=== PATIENT | female | born 1950 | race Caucasian/White ===

== ENCOUNTER 2020-04-23 08:27 | Outpatient (REF) | payer MEDICARE, SELFPAY ==
[2020-04-23 10:25] LABS: Cholesterol 206 mg/dL; HDL Cholesterol 97 mg/dL; LDL Cholesterol Calculated 99 mg/dl; Triglycerides 53 mg/dL
== END 2020-04-23 08:28 | disposition home or self-care (01) ==
LOC: HO.LAB 08:27
PROVIDERS: PCP Internal Medicine; Visit Provider Internal Medicine
DX: E78.5 Hyperlipidemia, unspecified (principal)
CPT/HCPCS: 80061

== ENCOUNTER 2020-07-31 07:43 | Outpatient (REF) | payer MEDICARE, SELFPAY ==
[2020-07-31 09:07] LABS: Cholesterol 185 mg/dL; HDL Cholesterol 87 mg/dL; LDL Cholesterol Calculated 88 mg/dl; Triglycerides 53 mg/dL
== END 2020-07-31 07:44 | disposition home or self-care (01) ==
LOC: HO.LAB 07:43
PROVIDERS: PCP Internal Medicine; Visit Provider Internal Medicine
DX: E11.9 Type 2 diabetes mellitus without complications (principal)
CPT/HCPCS: 36415; 80061

== ENCOUNTER → 2020-11-03 11:10 | Outpatient (BNV) | payer MEDICARE, SELFPAY | PROVIDERS: PCP Internal Medicine; Visit Provider Internal Medicine Medical Oncology | DX: C50.911 Malignant neoplasm of unspecified site of right female breast (principal) | CPT/HCPCS: 99213; 99214 ==

== ENCOUNTER 2020-11-28 08:30 | Outpatient (REF) | payer MEDICARE, SELFPAY ==
[2020-11-28 09:11] LABS: MANUAL DIFF FLAG NO
[2020-11-28 09:18] LABS: Basophils Percent Auto 0.7 % (0-2); Eosinophils Absolute Auto 0.1 X10*3/uL (0.0-0.4); Eosinophils Percent Auto 1.9 % (0-4); Hematocrit 42.6 % (37-47); Hemoglobin 14.1 g/dl (12.0-16.0); Imm Gran Abs Auto 0.01 X10*3/uL (0.00-0.03); Imm Gran Pct Auto 0.2 % (0.0-0.4); Lymphocytes Absolute Auto 1.2 X10*3/uL (1.2-4.9); Mean Corpuscular HGB Conc 33.1 g/dl (31.0-35.0); Mean Corpuscular Hemoglobin 31.5 pg (27.0-33.0); Mean Corpuscular Volume 95.3 fL (80-98); Mean Platelet Volume 10.1 fL (9.4-12.3); Monocytes Absolute Auto 0.4 X10*3/uL (0.1-1.2); Monocytes Percent Auto 9.3 % (2-11); Neutrophils Absolute Auto 2.6 X10*3/uL (2.0-8.3); Neutrophils Percent Auto 59.9 % (45-73); Platelet Count 239 X10*3/uL (160-400); Red Blood Count 4.47 X10*6/uL (4.20-5.50); Red Cell Distribution Width 12.9 % (11.0-16.0); White Blood Count 4.3 X10*3/uL (4.8-10.8)
[2020-11-28 10:05] LABS: Alanine Aminotransferase 12 U/L (0-31); Albumin Level 4.5 g/dL (3.5-5.0); Alkaline Phosphatase 54 U/L (39-117); Anion Gap 15 (12-20); Aspartate Amino Transferase 20 U/L (5-31); Bilirubin Total 0.9 mg/dL (0.0-1.0); Blood Urea Nitrogen 18 mg/dL (9-16); Calcium 9.6 mg/dL (8.4-10.2); Carbon Dioxide 27 mmol/L (22-29); Chloride 104 mmol/L (96-108); Cholesterol 213 mg/dL; Estimated Glomerular Filt Rate > 60; Glucose Fasting 90 mg/dL (60-99); HDL Cholesterol 99 mg/dL; LDL Cholesterol Calculated 104 mg/dl; Potassium 3.9 mmol/L (3.3-5.1); Sodium 142 mmol/L (135-145); Thyroid Stimulating Hormone 1.94 uIU/mL (0.32-4.0); Triglycerides 53 mg/dL
== END 2020-11-28 08:31 | disposition home or self-care (01) ==
LOC: HO.LAB 08:30
PROVIDERS: Absent Provider Internal Medicine Medical Oncology; PCP Internal Medicine; Visit Provider Internal Medicine
DX: Z00.00 Encounter for general adult medical examination without abnormal findings (principal); E11.9 Type 2 diabetes mellitus without complications; E03.9 Hypothyroidism, unspecified
CPT/HCPCS: 36415; 80053; 80061; 84443; 85025

== ENCOUNTER 2020-12-22 07:43 | Outpatient (REF) | payer MEDICARE, SELFPAY ==
--- NOTE | ~2020-12-22 | US_ITS ---
EXAMINATION: US ABDOMEN COMPLETE CLINICAL INFORMATION: Unspecified abdominal pain. COMPARISON: Ultrasound renal with bladder 07/26/2018. CT abdomen 02/15/2007. TECHNIQUE: Real-time imaging of the abdominal viscera. FINDINGS: PANCREAS: Normal. ABDOMINAL AORTA: The proximal, mid, and distal segments are normal in caliber. INFERIOR VENA CAVA: Visualized portions are normal. LIVER: The liver is normal in size. The liver contour is normal. No focal hepatic lesion. There is no intrahepatic biliary duct dilatation seen. GALLBLADDER: There is a gallstone in the gallbladder. The gallbladder is normal in size. Gallbladder wall is normal. COMMON BILE DUCT: Normal in caliber measuring 0.4 cm in diameter. RIGHT KIDNEY: Normal. No hydronephrosis. No renal calculi or focal parenchymal lesions. The kidney measures 9.7 cm in maximum dimension. LEFT KIDNEY: Normal. No hydronephrosis. No renal calculi or focal parenchymal lesions. The kidney measures 10.1 cm in maximum dimension. SPLEEN: Normal. The spleen measures 7.4 cm in maximum dimension. FREE FLUID: None. US/US abdomen complete IMPRESSION: Small gallstone in the gallbladder. Otherwise unremarkable exam.
== END 2020-12-22 07:44 | disposition home or self-care (01) ==
LOC: HO.US 07:43
PROVIDERS: Visit Provider Internal Medicine
DX: R10.9 Unspecified abdominal pain (principal)
CPT/HCPCS: 76700

== ENCOUNTER 2021-02-02 15:41 | Outpatient (REF) | payer MEDICARE, SELFPAY ==
--- NOTE | ~2021-02-02 | MM_ITS ---
EXAMINATION: MM SCREENING DIGITAL BREAST TOMOSYNTHESIS, LEFT CLINICAL INFORMATION: Remote history right mastectomy for breast cancer. Due for yearly. COMPARISON: Mammography: 01/30/2020, 11/27/2018, 11/25/2017 TECHNIQUE: Digital breast tomosynthesis is performed in both the craniocaudal and mediolateral oblique views along with computer-aided detection (CAD). Synthesized 2D images are generated from the tomosynthesis. Additional left MLO view is provided. FINDINGS: There are scattered areas of fibroglandular density (ACR BI-RADS breast composition Category b). Breast tissue composition borders on heterogeneously dense. The parenchymal pattern is similar to prior exams. There is no developing density or interval mass or architectural abnormality. No abnormal calcifications. The axilla and skin contours are unremarkable. MM/MM tomosynthesis screening LT IMPRESSION: No mammographic evidence of malignancy. ASSESSMENT: BI-RADS 1: Negative RECOMMENDATION: Routine annual mammography screening. This patient's information was entered into a reminder system with a target due date for their next mammogram.
== END 2021-02-02 15:42 | disposition home or self-care (01) ==
LOC: HO.MAMMO 15:41
PROVIDERS: PCP Internal Medicine; Visit Provider Internal Medicine Medical Oncology
DX: Z12.31 Encounter for screening mammogram for malignant neoplasm of breast (principal)
CPT/HCPCS: 77063; 77067

== ENCOUNTER → 2021-02-04 09:44 | Outpatient (BNVA) | payer MEDICARE, SELFPAY | PROVIDERS: PCP Internal Medicine; Referring Provider Internal Medicine; Visit Provider Physician Assistant | DX: K57.30 Diverticulosis of large intestine without perforation or abscess without bleeding (principal); R10.9 Unspecified abdominal pain | CPT/HCPCS: 99202 ==

== ENCOUNTER 2021-03-23 09:53 | Day surgery (SDC) | payer MEDICARE, SELFPAY ==
[2021-03-18 13:30] VITALS: BMI 25.7
--- NOTE | 2021-03-20 12:05 | HO.ANESPROP2 ---
Documented by User: Chichi Aponte NP 03/20/21 12:07 HPI - Anesthesia Eval Consult details Narrative: 70yo F for Upper Endoscopy and Colonoscopy [facility] Active Problems Active Problems: All Active Problems (Updated 03/18/21 @ 13:29 by Maryam Castro RN) Breast cancer (Acute) Pulmonary nodule (Acute) Physical exam (Acute) Combined abdominal and pelvic pain (Acute) Diverticulosis large intestine w/o perforation or abscess w/o bleeding (Acute) Acid reflux (Acute) Abdominal pain (Acute) Hyperlipidemia (Acute) Hypertension (Acute) Past Medical History Medical History (Updated 03/18/21 @ 13:29 by Maryam Castro RN) Breast cancer Diverticulosis GERD (gastroesophageal reflux disease) Hyperlipidemia Hypertension Family History Family History Father No problems noted. Mother Uterine cancer CVD (cardiovascular disease) Diabetes Maternal Aunt Ovarian cancer Sister No problems noted. Brother No problems noted. Brother No problems noted. Brother No problems noted. Son No problems noted. Surgical History Surgical History History of D&C History of mastectomy History of prolapse of bladder History of total abdominal hysterectomy and bilateral salpingo-oophorectomy Hx of colonoscopy Social History Social History Housing: House Alcohol intake: current Alcohol intake frequency: a few times a week Patient Tobacco Use Status: Never used Tobacco Second Hand Smoke Exposure: No Advance Directives: No Advance Directives Information Provided: No service: No Current occupational status: retired Meds Allergies Allergy/AdvReac Type Severity Reaction Status Date / Time cefazolin [From Kefzol] Allergy Severe Rash Verified 03/18/21 13:26 clindamycin [CLINDAMYCIN] Allergy Severe RASH Verified 02/04/21 09:57 adhesive tape Allergy Intermediate REDNESS.BLI Verified 02/04/21 09:57 STERS cephalexin [Keflex] Allergy Intermediate Rash Verified 03/18/21 13:30 meperidine [Demerol] Allergy Unknown Unknown Verified 02/04/21 09:57 nitrofurantoin [Macrobid] Allergy Unknown Unknown Verified 02/04/21 09:57 Home Medications Medication Instructions Recorded Confirmed Last Taken Type raloxifene 60 mg tablet 60 mg PO DAILY 04/29/20 03/18/21 Unknown History Exam Exam Date and Time: March 20, 2021 1205 Height,Weight and Vital Signs: Height 5 ft 5 in Weight 70.307 kg Pertinent Lab Results Pertinent Lab Results: Laboratory Tests 11/28/20 11/28/20 08:35 08:35 WBC 4.3 L Hgb 14.1 Hct 42.6 Plt Count 239 Sodium 142 Potassium 3.9 Chloride 104 Carbon Dioxide 27 BUN 18 H Creatinine 0.84 Assessment and Plan Assessment Anesthesia Assessment: Chart Reviewed Documented by User: Jessica Enriquez MD 03/23/21 11:01 [facility] Past Medical History Medical History (Updated 03/18/21 @ 13:29 by Maryam Castro RN) Breast cancer Diverticulosis GERD (gastroesophageal reflux disease) Hyperlipidemia Hypertension Family History Family History Father No problems noted. Mother Uterine cancer CVD (cardiovascular disease) Diabetes Maternal Aunt Ovarian cancer Sister No problems noted. Brother No problems noted. Brother No problems noted. Brother No problems noted. Son No problems noted. Family history of problems with anesthesia: No Surgical History Surgical History History of D&C History of mastectomy History of prolapse of bladder History of total abdominal hysterectomy and bilateral salpingo-oophorectomy Hx of colonoscopy History of Problems with Anesthesia: No Social History Social History Housing: House Alcohol intake: current Alcohol intake frequency: a few times a week Patient Tobacco Use Status: Never used Tobacco Second Hand Smoke Exposure: No Advance Directives: No Advance Directives Information Provided: No service: No Current occupational status: retired Meds Allergies Allergy/AdvReac Type Severity Reaction Status Date / Time cefazolin [From Kefzol] Allergy Severe Rash Verified 03/18/21 13:26 clindamycin [CLINDAMYCIN] Allergy Severe RASH Verified 02/04/21 09:57 adhesive tape Allergy Intermediate REDNESS.BLI Verified 02/04/21 09:57 STERS cephalexin [Keflex] Allergy Intermediate Rash Verified 03/18/21 13:30 meperidine [Demerol] Allergy Unknown Unknown Verified 02/04/21 09:57 nitrofurantoin [Macrobid] Allergy Unknown Unknown Verified 02/04/21 09:57 Home Medications Medication Instructions Recorded Confirmed Last Taken Type raloxifene 60 mg tablet 60 mg PO DAILY 04/29/20 03/18/21 Unknown History Exam Height,Weight and Vital Signs: Height 5 ft 5 in Weight 70.307 kg Vital Signs Temp Pulse Resp BP Pulse Ox 03/23/21 10:27 97.6 F 97 16 155/76 H 99 Airway Mallampati Class: II TM Dist: >3cm Neck ROM: Full Loose/Missing/Broken Teeth: No Heart: RRR Lungs: CTAB Assessment and Plan Assessment Anesthesia Assessment: Anesthesia Plan Discussed Final Anesthetic Review Family History of Problems with Anesthesia: No History of Problems with Anesthesia: No NPO: Yes ASA Class: II Final Preanesthetic Review: No Changes in Pt Med Stat, Meds/Allgs Chart Reviewed, Consent Obtained/Reviewed and Anes Risks/Benef Reviewed Patient Risk: Low Procedure Risk: Low Assessment/Block/Sedation in SS: Assess/Block/Sedation-SS Anesthetic Plan Anesthetic Plan: MAC: Disposition: Standard PACU
--- NOTE | 2021-03-23 10:13 | MHC.SHP ---
Pre-Procedural Eval Section A Date of Service: 03/23/21 The patient is an INPATIENT: No The History & Physical has been completed within 30 days and I have reviewed it.: No Section B Chief Complaint: Acid Reflux, Abdominal Pain Details of Present Illness: Recent episode of diverticulitis, GERD, dysphagia Relevant Family History (Specify if Yes): Yes Relevant Social History: None Present Medications: see Short Stay Collaborative assessment Medical History: Significant History (Hyperlipidemia Hypertension) History of Previous Operations: Relevant previous surgery/procedure and date(s) (History of D&C History of mastectomy History of prolapse of bladder History of total abdominal hysterectomy and bilateral salpingo-oophorectomy Hx of colonoscopy) Allergies: Allergies Allergy/AdvReac Type Severity Reaction Status Date / Time cefazolin [From Kefzol] Allergy Severe Rash Verified 03/18/21 13:26 clindamycin [CLINDAMYCIN] Allergy Severe RASH Verified 02/04/21 09:57 adhesive tape Allergy Intermediate REDNESS.BLI Verified 02/04/21 09:57 STERS cephalexin [Keflex] Allergy Intermediate Rash Verified 03/18/21 13:30 meperidine [Demerol] Allergy Unknown Unknown Verified 02/04/21 09:57 nitrofurantoin [Macrobid] Allergy Unknown Unknown Verified 02/04/21 09:57 Review of Systems Sugical H&P ROS: Negative: Constitution, Cardiovascular and Respiratory and Yes, Specify: Gastrointestinal (GERD, dysphagia) Exam Surgical H&P Exam: Normal: Heart, Normal: Lungs, Normal: Extremities and Normal: Abdomen Plan Diagnosis/Plan: Unchanged I have reviewed the history and physical and performed a pertinent physical examination on my patient. No changes have occurred unless specified.
[2021-03-23 10:27] VITALS: BP 155/76; PULSE 97; RESP 16; TEMP 36.4; O2SAT 99
[2021-03-23] MEDS: Lactated Ringers 1,000 ML 100 ML IVCONT (10:29)
--- NOTE | 2021-03-23 10:30 | PM.OP ---
Brief Operative Note Date of Service: 03/23/21 Pre-op diagnosis: Recent episode of abd pain - ? diverticulitis, GERD, dysphagia Post-op diagnosis: other (GERD, dysphagia, colon polyp, diverticulosis, hemorrhoids.) Procedure: FLEXIBLE TRANSORAL UPPER GASTROINTESTINAL ENDOSCOPY WITH BIOPSIES AND ESOPHAGEAL BALLOON DILATION AND COLONOSCOPY TILL CECUM WITH SNARE POLYPECTOMY UPPER ENDOSCOPY Consent: Indications for the procedure and potential complications of bleeding, perforation, reaction to medications and missed diagnosis were discussed with the patient and informed consent was obtained. Instrument: Olympus GIF H 190 mid size upper endoscope Monitoring: Vital signs and clinical assessment, continuous EKG monitoring, Pulse oximetry, Carbon Dioxide monitoring and blood pressure monitoring were done throughout the procedure. Procedure: The patient was placed in the left lateral decubitis position and pre-procedure medications were administered and a bite block was placed. The endoscope was inserted into the mouth and advanced under direct vision to the third part of duodenum. A careful inspection was made as the upper endoscope was withdrawn including a retroflexed examination of the proximal stomach; Findings and interventions are described below. Findings: Esophagus: Tortuous esophagus with iincreased tertiary contractions without stricture or ring. GE junction at 38 cms. Irregular Z line - biopsied to check for Castillo's. Balloon dilation was performed with a 20 mm CRE balloon for 60 seconds Stomach: Mild gastric erythema. Biopsies were obtained. Grade 2 flap valve on retroflexed examination of the cardia. Duodenum: Normal bulb and descending duodenum Intervention: Biopsies and esophageal balloon dilation as noted above COLONOSCOPY PROCEDURE NOTE Consent: Indications for the procedure and potential complications of bleeding, perforation, reaction to medications and missed diagnosis were discussed with the patient and informed consent was obtained. Instrument: Olympus PCF H 190 L variable stiffness pediatric colonoscope Monitoring: Vital signs and clinical assessment, intermittent blood pressure monitoring, continuous EKG monitoring, Pulse oximetry and Carbon Dioxide monitoring were done throughout the procedure. Colon withdrawl time was 13 minutes. Procedure: The patient was placed in the left lateral decubitis position and pre-procedure medications were administered. After a digital rectal examination of the ano-rectum, the video colonoscope was inserted into the rectum and advanced through the colon to the cecum. The colonoscope was slowly withdrawn in a retrograde panoramic fashion and the colon mucosa was carefully examined including a retroflexed view of the rectum. Findings and interventions are described below. Procedure Difficulty: : Without difficulty Findings: Terminal Ileum: Not evaluated Cecum: Normal Ascending Colon: A 12-14 mm sessile polyp removed with a hot snare and scattered diverticulosis Transverse Colon: Scattered moderate diverticulosis Descending Colon: Scattered moderate diverticulosis Sigmoid Colon: Moderate diverticulosis Rectum: Normal Ano-rectum: Small internal hemorrhoids Colon preparation: Good Impression and Post Procedure Diagnosis: Endoscopy Findings: ESOPHAGUS: Tortuous esophagus with iincreased tertiary contractions without stricture or ring. GE junction at 38 cms. Irregular Z line - biopsied to check for Castillo's. Balloon dilation was performed with a 20 mm CRE balloon for 60 seconds STOMACH: Gastritis Colonoscopy Findings: One medium sized polyp removed Moderate diverticulosis seen in the entire colon Small hemorrhoids on retroflexed exam. Plan: Await pathology results Patient has an appointment on 04/08/21 in the GI Clinic with MARIANNA Tuttle . Repeat Colonoscopy interval based on path results - in 3 years if polyp is adenomatous and 10 years if polyps are hyperplastic. Above findings were reviewed with the patient and colon polyps and diverticulosis handouts were given in the discharge area Surgeon: Eileen Bowen MD Anesthesia: MAC (Dr diego) Was an Open Hearth Laborer used for this Procedure?: Yes Open Hearth Laborer: Vonnie Judd Estimated blood loss (mL): 0 Pathology: other (A. gastric antrum, R/O H. pylori B. distal esophagus, R/O Castillo's C. ascending colon polyp) Condition: stable Disposition: PACU
--- NOTE | 2021-03-23 10:32 | W.PM.OPN ---
Operative Note Operative Note Date of Service: 03/23/21 Narrative: Pre-op diagnosis:?Recent episode of abd pain - ? diverticulitis, GERD, dysphagia Post-op diagnosis:?other (GERD, dysphagia, colon polyp, diverticulosis, hemorrhoids.) Procedure:? FLEXIBLE TRANSORAL UPPER GASTROINTESTINAL ENDOSCOPY WITH BIOPSIES AND ESOPHAGEAL BALLOON DILATION AND COLONOSCOPY TILL CECUM WITH SNARE POLYPECTOMY UPPER ENDOSCOPY Consent:?Indications for the procedure and potential complications of bleeding, perforation, reaction to medications and missed diagnosis were discussed with the patient and informed consent was obtained. Instrument:?Olympus GIF H 190 mid size upper endoscope Monitoring: Vital signs and clinical assessment, continuous EKG monitoring, Pulse oximetry, Carbon Dioxide monitoring and blood pressure monitoring were done throughout the procedure. Procedure:?The patient was placed in the left lateral decubitis position and pre-procedure medications were administered and a bite block was placed. The endoscope was inserted into the mouth and advanced under direct vision to the third part of duodenum. A careful inspection was made as the upper endoscope was withdrawn including a retroflexed examination of the proximal stomach; Findings and interventions are described below. Findings: Esophagus:?Tortuous esophagus with iincreased tertiary contractions without stricture or ring.? GE junction at 38 cms.? Irregular Z line - biopsied to check for Castillo's. Balloon dilation was performed with a 20 mm CRE balloon for 60 seconds Stomach:?Mild gastric erythema. Biopsies were obtained. Grade 2 flap valve on retroflexed examination of the cardia. Duodenum:?Normal bulb and descending duodenum Intervention:?Biopsies and esophageal balloon dilation as noted above COLONOSCOPY PROCEDURE NOTE Consent:?Indications for the procedure and potential complications of bleeding, perforation, reaction to medications and missed diagnosis were discussed with the patient and informed consent was obtained. Instrument:?Olympus PCF H 190 L variable stiffness pediatric colonoscope Monitoring:?Vital signs and clinical assessment, intermittent blood pressure monitoring, continuous EKG monitoring, Pulse oximetry and Carbon Dioxide monitoring were done throughout the procedure. Colon withdrawl time was 13 minutes. Procedure:?The patient was placed in the left lateral decubitis position and pre-procedure medications were administered. After a digital rectal examination of the ano-rectum, the video colonoscope was inserted into the rectum and advanced through the colon to the cecum. The colonoscope was slowly withdrawn in a retrograde panoramic fashion and the colon mucosa was carefully examined including a retroflexed view of the rectum. Findings and interventions are described below. Procedure Difficulty:?: Without difficulty Findings: Terminal Ileum: Not evaluated Cecum:? Normal Ascending Colon:??A 12-14 mm sessile polyp removed with a hot snare and scattered diverticulosis Transverse Colon:??Scattered moderate diverticulosis Descending Colon:? Scattered moderate diverticulosis Sigmoid Colon:??Moderate diverticulosis Rectum:??Normal Ano-rectum:??Small internal hemorrhoids Colon preparation:? Good? Impression and Post Procedure Diagnosis: Endoscopy Findings: ESOPHAGUS: Tortuous esophagus with iincreased tertiary contractions without stricture or ring.? GE junction at 38 cms.? Irregular Z line - biopsied to check for Castillo's. Balloon dilation was performed with a 20 mm CRE balloon for 60 seconds STOMACH: Gastritis Colonoscopy Findings: One medium sized polyp removed Moderate diverticulosis seen in the entire colon Small hemorrhoids on retroflexed exam. Plan: Await pathology results Patient has an appointment on 04/08/21 in the GI Clinic with MARIANNA Tuttle . Repeat Colonoscopy interval based on path results - in 3 years if polyp is adenomatous and 10 years if polyps are hyperplastic. Above findings were reviewed with the patient and colon polyps and diverticulosis handouts were given in the discharge area Surgeon:?Eileen Bowen MD Anesthesia:?MAC (Dr diego) Was an Plastic Surgeon used for this Procedure?:?Yes Plastic Surgeon:?Vonnie Judd Estimated blood loss (mL):?0 Pathology:?other (A. gastric antrum, R/O H. pylori? B. distal esophagus, R/O Castillo's? C. ascending colon polyp) Condition:?stable Disposition:?PACU
[2021-03-23 11:28] VITALS: BP 104/60; PULSE 68; RESP 16; TEMP 36.9; O2SAT 97
[2021-03-23 11:43] VITALS: BP 120/70; PULSE 57; RESP 16; TEMP 36.9; O2SAT 98
== END 2021-03-23 12:26 | disposition home or self-care (01) ==
PROVIDERS: PCP Internal Medicine; Visit Provider Internal Medicine Gastroenterology
PROC: (CPT 45385; principal; 2021-03-23 11:00)
DX: Z12.11 Encounter for screening for malignant neoplasm of colon (principal); D12.2 Benign neoplasm of ascending colon; K57.30 Diverticulosis of large intestine without perforation or abscess without bleeding; K64.8 Other hemorrhoids; K21.9 Gastro-esophageal reflux disease without esophagitis; R13.10 Dysphagia, unspecified; K29.70 Gastritis, unspecified, without bleeding; I10 Essential (primary) hypertension
CPT/HCPCS: 45385; 43249; 43239; 88305; 88342; C1726

== ENCOUNTER 2021-04-01 07:56 | Outpatient (REF) | payer MEDICARE, SELFPAY ==
[2021-04-01 09:07] LABS: Cholesterol 177 mg/dL; HDL Cholesterol 69 mg/dL; LDL Cholesterol Calculated 97 mg/dl; Triglycerides 58 mg/dL
== END 2021-04-01 07:57 | disposition home or self-care (01) ==
LOC: HO.LAB 07:56
PROVIDERS: PCP Internal Medicine; Visit Provider Internal Medicine
DX: E11.9 Type 2 diabetes mellitus without complications (principal)
CPT/HCPCS: 36415; 80061

== ENCOUNTER → 2021-04-08 13:28 | Outpatient (BNVA) | payer MEDICARE, SELFPAY | PROVIDERS: PCP Internal Medicine; Visit Provider Physician Assistant | DX: K21.9 Gastro-esophageal reflux disease without esophagitis (principal); K64.9 Unspecified hemorrhoids; K57.90 Diverticulosis of intestine, part unspecified, without perforation or abscess without bleeding; K59.09 Other constipation; D36.9 Benign neoplasm, unspecified site | CPT/HCPCS: 99212 ==

== ENCOUNTER 2021-08-07 08:30 | Outpatient (REF) | payer MEDICARE, SELFPAY ==
[2021-08-07 09:42] LABS: Cholesterol 217 mg/dL; HDL Cholesterol 88 mg/dL; LDL Cholesterol Calculated 115 mg/dl; Triglycerides 74 mg/dL
== END 2021-08-07 08:31 | disposition home or self-care (01) ==
LOC: HO.LAB 08:30
PROVIDERS: PCP Internal Medicine; Visit Provider Internal Medicine
DX: E11.9 Type 2 diabetes mellitus without complications (principal)
CPT/HCPCS: 36415; 80061

== ENCOUNTER 2021-12-29 08:20 | Outpatient (REF) | payer MEDICARE, SELFPAY ==
[2021-12-29 08:29] LABS: MANUAL DIFF FLAG NO
[2021-12-29 09:17] LABS: Basophils Percent Auto 0.6 % (0-2); Eosinophils Absolute Auto 0.1 X10*3/uL (0.0-0.4); Eosinophils Percent Auto 1.8 % (0-4); Hematocrit 40.8 % (37.0-47.0); Hemoglobin 13.2 g/dl (12.0-16.0); Imm Gran Abs Auto 0.01 X10*3/uL (0.00-0.03); Imm Gran Pct Auto 0.2 % (0.0-0.4); Lymphocytes Absolute Auto 1.1 X10*3/uL (1.2-4.9); Lymphocytes Percent Auto 22.3 % (20-40); Mean Corpuscular HGB Conc 32.4 g/dl (31.0-35.0); Mean Corpuscular Hemoglobin 30.8 pg (27.0-33.0); Mean Corpuscular Volume 95.1 fL (80.0-98.0); Mean Platelet Volume 10.2 fL (9.4-12.3); Monocytes Absolute Auto 0.4 X10*3/uL (0.1-1.2); Monocytes Percent Auto 8.6 % (2-11); Neutrophils Absolute Auto 3.3 x10*3/uL (2.0-8.3); Neutrophils Percent Auto 66.5 % (45-73); Platelet Count 255 X10*3/uL (160-400); Red Blood Count 4.29 X10*6/uL (4.20-5.50); Red Cell Distribution Width 13.3 % (11.0-16.0)
[2021-12-29 09:41] LABS: Alanine Aminotransferase 12 U/L (0-31); Albumin Level 4.3 g/dL (3.5-5.0); Alkaline Phosphatase 60 U/L (39-117); Anion Gap 12 (12-20); Aspartate Amino Transferase 21 U/L (5-31); Bilirubin Total 0.8 mg/dL (0.0-1.0); Blood Urea Nitrogen 15 mg/dL (9-16); Calcium 9.2 mg/dL (8.4-10.2); Carbon Dioxide 27 mmol/L (22-29); Chloride 105 mmol/L (96-108); Cholesterol 201 mg/dL; Estimated Glomerular Filt Rate > 60; Glucose Fasting 91 mg/dL (60-99); HDL Cholesterol 77 mg/dL; LDL Cholesterol Calculated 108 mg/dl; Potassium 3.9 mmol/L (3.3-5.1); Sodium 140 mmol/L (135-145); Total Protein 6.9 g/dL (6.5-8.0); Triglycerides 82 mg/dL
== END 2021-12-29 08:21 | disposition home or self-care (01) ==
LOC: HO.LAB 08:20
PROVIDERS: PCP Internal Medicine; Visit Provider Internal Medicine
DX: Z13.0 Encounter for screening for diseases of the blood and blood-forming organs and certain disorders involving the immune mechanism (principal); I10 Essential (primary) hypertension; E78.5 Hyperlipidemia, unspecified
CPT/HCPCS: 36415; 80053; 80061; 85025

== ENCOUNTER 2022-02-08 07:15 | Outpatient (REF) | payer MEDICARE, SELFPAY ==
--- NOTE | ~2022-02-08 | MM_ITS ---
EXAMINATION: MM SCREENING DIGITAL BREAST TOMOSYNTHESIS, LEFT CLINICAL INFORMATION: Remote right mastectomy for breast cancer, 1994. Due for yearly. COMPARISON: Mammography: 02/02/2021, 01/30/2020, 11/27/2018 TECHNIQUE: Digital breast tomosynthesis is performed in both the craniocaudal and mediolateral oblique views along with computer-aided detection (CAD). Synthesized 2D images are generated from the tomosynthesis. FINDINGS: There are scattered areas of fibroglandular density (ACR BI-RADS breast composition Category b). Parenchymal pattern is similar to prior studies and there is no developing density or interval mass or arcuate additional abnormality. Breast tissue composition borders on heterogeneously dense. There are no abnormal calcifications. The axilla are unremarkable. There is a dermal lesion overlying the posterior inferior medial breast. MM/MM tomosynthesis screening LT IMPRESSION: No mammographic evidence of malignancy. ASSESSMENT: BI-RADS 2: Benign RECOMMENDATION: Routine annual mammography screening. This patient's information was entered into a reminder system with a target due date for their next mammogram.
== END 2022-02-08 07:16 | disposition home or self-care (01) ==
LOC: HO.MAMMO 07:15
PROVIDERS: PCP Internal Medicine; Visit Provider Internal Medicine
DX: Z12.31 Encounter for screening mammogram for malignant neoplasm of breast (principal)
CPT/HCPCS: 77063; 77067

== ENCOUNTER → 2022-03-11 08:16 | Outpatient (BNVA) | payer MEDICARE, SELFPAY | PROVIDERS: PCP Internal Medicine; Visit Provider Physician Assistant | DX: K21.9 Gastro-esophageal reflux disease without esophagitis (principal); K57.90 Diverticulosis of intestine, part unspecified, without perforation or abscess without bleeding; K59.09 Other constipation; Z79.899 Other long term (current) drug therapy; Z86.010 Personal history of colon polyps | CPT/HCPCS: 99212 ==

== ENCOUNTER 2022-05-06 13:15 | Outpatient (REF) | payer MEDICARE, SELFPAY ==
--- NOTE | ~2022-05-06 | MM_ITS ---
EXAMINATION: BONE DENSITOMETRY CLINICAL INDICATION: Osteopenia. COMPARISON: Previous BD dated 02/19/2020 and baseline BD dated 12/04/2007. TECHNIQUE: Using a [employer] DXA System (software version: 13.1) manufactured by [employer], dual-energy x-ray absorptiometry was performed of the lumbar spine and left hip. The images are of good technical quality. Summary results are attached. FINDINGS: AP SPINE L1-L4: Current: BMD 1.000 g/cm2, Z-score 0.0, T-score -1.5, osteopenia, 1.0% decrease from previous, 9.3% increase from baseline (<5% change is not significant). Prior: BMD 1.010 g/cm2. Baseline: BMD 0.915 g/cm2. LEFT FEMUR, NECK: Current: BMD 0.749 g/cm2, Z-score -0.5, T-score -2.1, osteopenia. Prior: BMD 0.748 g/cm2. Baseline: BMD 0.745 g/cm2. LEFT FEMUR, TOTAL: Current: BMD 0.813 g/cm2, Z-score -0.2, T-score -1.5, osteopenia, 0.1% increase from previous, 0.5% decrease from baseline (<5% change is not significant). Prior: BMD 0.812 g/cm2. Baseline: BMD 0.817 g/cm2. IDENTIFIED RISK FACTORS: Early menopause, secondary osteoporosis, family history (parental hip fracture), hysterectomy, bilateral oophorectomy. HISTORY OF FRACTURE: None listed. MEDICATIONS: Vitamin D, ERT/SERMS. MM/XR DEXA axial skeleton IMPRESSION: 1. DIAGNOSIS: Osteopenia based on the lowest T-score value of -2.1 in the femoral neck applying World Health Organization criteria. 2. 10-YEAR FRACTURE RISK PREDICTION, FRAX: Not performed in this patient on estrogen or bone building treatments. 3. Treatment Recommendations: NOF guidelines recommend consideration for treatment in postmenopausal women and men age 50 and older presenting with the following: -A hip or vertebral (clinical or morphometric) fracture. -T-score less than or equal to -2.5 at the femoral neck or spine after appropriate evaluation to exclude secondary causes. -Low bone mass at the hip or spine and a 10-year fracture probability by FRAX of greater than or equal to 3% for hip fracture or greater than or equal to 20% for major osteoporotic fracture based on the [place] adapted WHO algorithm. 4. Other Recommendations: All treatment decisions require clinical judgment and consideration of individual patient factors, including patient preferences, comorbidities, previous drug use, risk factors not captured in the FRAX model (e.g. frailty, falls, vitamin D deficiency, increased bone turnover, interval significant decline in bone density) and possible under or overestimation of fracture risk by FRAX. Additional medical evaluation for secondary cause of low bone mineral density may be appropriate. FUTURE SCAN RECOMMENDATION: People with diagnosed cases of osteoporosis or at high risk for fracture should have regular bone mineral density tests. For patients eligible for Medicare, routine testing is allowed once every 2 years. The testing frequency can be increased to one year for patients who have rapidly progressing disease, those who are receiving or discontinuing medical therapy to restore bone mass, or have additional risk factors.
== END 2022-05-06 13:16 | disposition home or self-care (01) ==
LOC: HO.MAMMO 13:15
PROVIDERS: Visit Provider Internal Medicine Medical Oncology
DX: Z13.820 Encounter for screening for osteoporosis (principal); M85.80 Other specified disorders of bone density and structure, unspecified site; Z78.0 Asymptomatic menopausal state
CPT/HCPCS: 77080

== ENCOUNTER 2022-05-10 08:55 | Outpatient (REF) | payer MEDICARE, SELFPAY ==
[2022-05-10 09:15] LABS: MANUAL DIFF FLAG NO
[2022-05-10 09:35] LABS: Basophils Percent Auto 0.6 % (0-2); Eosinophils Absolute Auto 0.1 X10*3/uL (0.0-0.4); Hematocrit 43.9 % (37.0-47.0); Hemoglobin 14.6 g/dl (12.0-16.0); Imm Gran Abs Auto 0.01 X10*3/uL (0.00-0.03); Imm Gran Pct Auto 0.2 % (0.0-0.4); Lymphocytes Absolute Auto 1.2 X10*3/uL (1.2-4.9); Mean Corpuscular HGB Conc 33.3 g/dl (31.0-35.0); Mean Corpuscular Hemoglobin 31.2 pg (27.0-33.0); Mean Corpuscular Volume 93.8 fL (80.0-98.0); Mean Platelet Volume 9.8 fL (9.4-12.3); Monocytes Absolute Auto 0.4 X10*3/uL (0.1-1.2); Monocytes Percent Auto 7.3 % (2-11); Neutrophils Absolute Auto 3.5 x10*3/uL (2.0-8.3); Neutrophils Percent Auto 67.9 % (45-73); Platelet Count 257 X10*3/uL (160-400); Red Blood Count 4.68 X10*6/uL (4.20-5.50); Red Cell Distribution Width 12.4 % (11.0-16.0); White Blood Count 5.1 X10*3/uL (4.8-10.8)
[2022-05-10 11:00] LABS: Alanine Aminotransferase 12 U/L (0-31); Albumin Level 4.5 g/dL (3.5-5.0); Alkaline Phosphatase 54 U/L (39-117); Anion Gap 16 (12-20); Aspartate Amino Transferase 18 U/L (5-31); Bilirubin Total 0.7 mg/dL (0.0-1.0); Blood Urea Nitrogen 17 mg/dL (9-16); Calcium 9.8 mg/dL (8.4-10.2); Carbon Dioxide 27 mmol/L (22-29); Chloride 104 mmol/L (96-108); Cholesterol 207 mg/dL; Estimated Glomerular Filt Rate > 60; Glucose Fasting 90 mg/dL (60-99); HDL Cholesterol 82 mg/dL; LDL Cholesterol Calculated 113 mg/dl; Potassium 4.2 mmol/L (3.3-5.1); Sodium 143 mmol/L (135-145); Thyroid Stimulating Hormone 1.73 uIU/mL (0.32-4.0); Total Protein 7.2 g/dL (6.5-8.0); Triglycerides 62 mg/dL
== END 2022-05-10 08:56 | disposition home or self-care (01) ==
LOC: HO.LAB 08:55
PROVIDERS: PCP Internal Medicine; Visit Provider Internal Medicine
DX: E03.9 Hypothyroidism, unspecified (principal); E78.5 Hyperlipidemia, unspecified; I10 Essential (primary) hypertension; Z13.0 Encounter for screening for diseases of the blood and blood-forming organs and certain disorders involving the immune mechanism
CPT/HCPCS: 36415; 80053; 80061; 84443; 85025

== ENCOUNTER 2022-09-06 08:08 | Outpatient (REF) | payer MEDICARE, SELFPAY ==
[2022-09-06 09:11] LABS: Cholesterol 225 mg/dL; HDL Cholesterol 89 mg/dL; LDL Cholesterol Calculated 123 mg/dl; Triglycerides 67 mg/dL
== END 2022-09-06 08:09 | disposition home or self-care (01) ==
LOC: HO.LAB 08:08
PROVIDERS: PCP Internal Medicine; Visit Provider Internal Medicine
DX: E78.5 Hyperlipidemia, unspecified (principal)
CPT/HCPCS: 36415; 80061

== ENCOUNTER 2023-01-04 07:45 | Outpatient (REF) | payer MEDICARE, SELFPAY ==
[2023-01-04 09:03] LABS: Cholesterol 205 mg/dL; HDL Cholesterol 94 mg/dL; LDL Cholesterol Calculated 99 mg/dl; Triglycerides 62 mg/dL
== END 2023-01-04 07:46 | disposition home or self-care (01) ==
LOC: HO.LAB 07:45
PROVIDERS: PCP Internal Medicine; Visit Provider Internal Medicine
DX: E78.5 Hyperlipidemia, unspecified (principal)
CPT/HCPCS: 36415; 80061

== ENCOUNTER 2023-01-10 10:43 | Outpatient (AMB) | payer MEDICARE, SELFPAY ==
--- NOTE | 2023-01-10 10:47 | MHC.PC.OV ---
Vital Signs 01/10/23 10:48 Height 5 ft 6 in Weight 150 lb 8 oz BMI 24.3 BP 130/78 Blood Pressure Location Lt brachial Position Sitting Pulse 83 Pulse Source Pulse Oximeter Pulse Oximetry (%) 98 Oxygen Delivery Method Room Air Intake Visit Reasons: 4mth f/u Intake Note: Patient is here to follow up on HTN, Hyperlipidemia. 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 Accompanied by: Self / Same As Patient Allergies cefazolin [From Kefzol] Allergy (Severe, Verified 01/10/23 10:48) Rash clindamycin [CLINDAMYCIN] Allergy (Severe, Verified 01/10/23 10:48) RASH adhesive tape Allergy (Intermediate, Verified 01/10/23 10:48) REDNESS.BLISTERS cephalexin [Keflex] Allergy (Intermediate, Verified 01/10/23 10:48) Rash meperidine [Demerol] Allergy (Unknown, Verified 01/10/23 10:48) Unknown nitrofurantoin [Macrobid] Allergy (Unknown, Verified 01/10/23 10:48) Unknown Medication List - Last Reconciled 01/10/23 by Neo Hernandez MD atorvastatin 40 mg PO DAILY hydrochlorothiazide 25 mg PO DAILY methylcellulose (laxative) (Citrucel) 500 mg PO BID omeprazole 20 mg PO DAILY raloxifene (Evista) 60 mg PO DAILY Tobacco use date assessed: 01/10/23 Fall risk assessment: No Falls in past year Last assessed Fall Risk: 01/10/23 Dental Screening Dental Screen Date: 01/10/23 Did you have a dental visit in the last 12 months?: Yes Did you have a dental problem in the last 6 months where you did not have access to dental care?: No Was dental information given to patient?: Patient has dentist HPI 4mth f/u HPI Details hyperlipidemia htn and gerd; stable; labs fine PFSH Medical History (Updated 01/10/23 @ 10:44 by Neo Hernandez MD) Breast cancer Diverticulosis GERD (gastroesophageal reflux disease) Hyperlipidemia Hypertension Surgical History (Updated 01/10/23 @ 10:51 by ARMIN Baker) History of bilateral cataract extraction History of D&C History of esophagogastroduodenoscopy (EGD) History of mastectomy History of prolapse of bladder History of total abdominal hysterectomy and bilateral salpingo-oophorectomy Hx of colonoscopy Family History Father No problems noted. Mother Uterine cancer CVD (cardiovascular disease) Diabetes Maternal Aunt Ovarian cancer Sister No problems noted. Brother No problems noted. Brother No problems noted. Brother No problems noted. Son No problems noted. Social History Household Members: Spouse Housing: House Are you a primary rn progressive care unit to a significant other at home: No Do you presently have visiting nurse or other home services: No Alcohol intake: current Alcohol intake frequency: a few times a week Patient Tobacco Use Status: Never used Tobacco e-Cigarette/Vaping Use: Never Used Second Hand Smoke Exposure: No service: No Current occupational status: retired Cognitive needs: No Hearing needs: No Vision needs: Yes Questionnaire PHQ-9 Over the last 2 weeks, how often have you been bothered by any of the following problems? Depression Screening Interpretation: Negative Source: Developed by Drs. Mynor Priest, Malu Jones, Trev Luna and colleagues, with an educational vicky from [employer]. Thrive Questionnaire Date Thrive assessed: 09/10/22 Currently or been in a relationship where the following occur: no concerns reported AYLA-7 AMB Questionnaire AYLA-7 Date AYLA - 7 assessed: 09/10/22 Source: Developed by Drs. Mynor Priest, Malu Jones, Trev Luna and colleagues, with an educational vicky from [employer]. Review of Systems Const Denies chills, Denies headache(s) and Denies weight loss ENT Denies headache(s) Card Denies chest pain, Denies syncope, Denies irregular heart rhythm and Denies dyspnea Resp Denies chest congestion, Denies cough and Denies dyspnea GI Denies abdominal pain, Denies change in stool character, Denies nausea and Denies vomiting Musc Denies deformity and Denies joint swelling Neuro Denies syncope and Denies headache(s) Physical exam (Primary Care) Vital Signs: Last Vital Signs Pulse 83 01/10/23 10:48 BP 130/78 01/10/23 10:48 Pulse Ox 98 01/10/23 10:48 Oxygen Delivery Method Room Air 01/10/23 10:48 BMI result Body Mass Index 24.3 Tobacco/Smoking Status: Tobacco use Status Tobacco use date assessed 01/10/23 01/10/23 10:52 Patient Tobacco Use Status Never used Tobacco 01/10/23 10:52 e-Cigarette/Vaping Use Never Used 01/10/23 10:52 Depression Screening Interpretation: Negative Thrive Assessment: Date of Thrive Assessment Date Thrive assessed 09/10/22 01/10/23 10:52 Currently or been in a relationship where the following occur: no concerns reported Const General: cooperative, comfortable and no acute distress Resp Effort & Inspection: normal respiratory effort Auscultation: clear to auscultation bilaterally Percussion: percussion normal Cardio Jugular venous distension: no JVD Rate: regular rate Rhythm: regular rhythm GI Inspection: Yes normal to inspection Assessment and Plan Assessment & Plan (1) Acid reflux: Code(s): K21.9 - Gastro-esophageal reflux disease without esophagitis Plan: stable; same rx (2) Hyperlipidemia: Code(s): E78.5 - Hyperlipidemia, unspecified Plan: stable; same rx (3) Hypertension: Code(s): I10 - Essential (primary) hypertension Plan: stable;same rx Orders: Orders Comprehensive [place]. Panel Fast Today N28.9 - Disorder of kidney and ureter, unspecified Lipid Panel Today E78.5 - Hyperlipidemia, unspecified Thyroid Stimulating Hormone Today E03.9 - Hypothyroidism, unspecified Complete Blood Count Auto Diff Today D64.9 - Anemia, unspecified Coding Level of Care Code Est Pt Level 4 (32880) Diagnoses Acid reflux K21.9 Hyperlipidemia E78.5 Hypertension I10
[2023-01-10 10:48] VITALS: BP 130/78; PULSE 83; O2SAT 98; BMI 24.3
== END 2023-01-10 11:05 | disposition home or self-care (01) ==
PROVIDERS: PCP Internal Medicine; Visit Provider Internal Medicine
DX: K21.9 Gastro-esophageal reflux disease without esophagitis (principal); E78.5 Hyperlipidemia, unspecified; I10 Essential (primary) hypertension
CPT/HCPCS: 99214

== ENCOUNTER 2023-02-14 10:11 | Outpatient (REF) | payer MEDICARE, SELFPAY ==
--- NOTE | ~2023-02-14 | MM_ITS ---
EXAMINATION: MM SCREENING DIGITAL BREAST TOMOSYNTHESIS, BILATERAL CLINICAL INFORMATION: Screening. Asymptomatic. The patient is status post right mastectomy. COMPARISON: Mammography: This study is compared with prior exams dating back to 2019. TECHNIQUE: Digital breast tomosynthesis is performed in both the craniocaudal and mediolateral oblique views along with computer-aided detection (CAD). Synthesized 2D images are generated from the tomosynthesis. FINDINGS: There are scattered areas of fibroglandular density (ACR BI-RADS breast composition Category b). There are no significant masses, abnormal calcifications, or other abnormalities. MM/MM tomosynthesis screening LT IMPRESSION: No mammographic evidence of malignancy. ASSESSMENT: BI-RADS BI-RADS 1 - Negative RECOMMENDATION: Routine annual mammography screening. 1 year F/U This examination should not preclude the clinical evaluation of a suspicious palpable abnormality. This patient's information was entered into a reminder system with a target due date for their next mammogram.
== END 2023-02-14 10:12 | disposition home or self-care (01) ==
LOC: HO.MAMMO 10:11
PROVIDERS: Absent Provider Internal Medicine Medical Oncology; PCP Internal Medicine; Visit Provider Internal Medicine
DX: Z12.31 Encounter for screening mammogram for malignant neoplasm of breast (principal)
CPT/HCPCS: 77063; 77067

== ENCOUNTER → 2023-02-14 10:30 | Outpatient (BNV) | payer MEDICARE, SELFPAY | PROVIDERS: Absent Provider Internal Medicine Medical Oncology; PCP Internal Medicine; Visit Provider Radiology Diagnostic Radiology | DX: Z12.31 Encounter for screening mammogram for malignant neoplasm of breast (principal) | CPT/HCPCS: 77063; 77067 ==

== ENCOUNTER 2023-04-20 09:51 | Outpatient (AMB) | payer MEDICARE, SELFPAY ==
--- NOTE | 2023-04-20 09:56 | MHC.OFFVIS ---
Intake Vital Signs 04/20/23 10:00 Height 5 ft 5.5 in Weight 150 lb BMI 24.6 BP 143/73 H Blood Pressure Location Lt brachial Position Sitting Pulse 84 Intake Visit Reasons: Medication review Intake Note: Patient followup for acid reflex. Patient needed medication refills. 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 Accompanied by: Self / Same As Patient Allergies cefazolin [From Kefzol] Allergy (Severe, Verified 04/20/23 09:56) Rash clindamycin [CLINDAMYCIN] Allergy (Severe, Verified 04/20/23 09:56) RASH adhesive tape Allergy (Intermediate, Verified 04/20/23 09:56) REDNESS.BLISTERS cephalexin [Keflex] Allergy (Intermediate, Verified 04/20/23 09:56) Rash meperidine [Demerol] Allergy (Unknown, Verified 04/20/23 09:56) Unknown nitrofurantoin [Macrobid] Allergy (Unknown, Verified 04/20/23 09:56) Unknown Medication List - Last Reconciled 04/20/23 by Alexandrea Sandra PA-C atorvastatin 40 mg PO DAILY hydrochlorothiazide 25 mg PO DAILY methylcellulose (laxative) (Citrucel) 500 mg PO BID omeprazole 20 mg PO DAILY raloxifene (Evista) 60 mg PO DAILY HPI HPI Comments History of Present Illness Details A 72 y/o female history of colon polyps and acid reflux f/u for refills omeprazole and citrucel- She is doing very well she is very spots if to omeprazole for acid reflux as well as with dietary modifications. She is using Citrucel -and has been beneficial. She maintains a high-fiber healthy diet. She will be due for EGD colonoscopy in 2023 She has no nausea, vomiting, hematemesis, hematochezia fever or chills [facility] Medical History Breast cancer Diverticulosis GERD (gastroesophageal reflux disease) Hyperlipidemia Hypertension Surgical History History of bilateral cataract extraction History of esophagogastroduodenoscopy (EGD) Hx of colonoscopy History of prolapse of bladder History of mastectomy History of total abdominal hysterectomy and bilateral salpingo-oophorectomy History of D&C Family History Father No problems noted. Mother Uterine cancer CVD (cardiovascular disease) Diabetes Maternal Aunt Ovarian cancer Sister No problems noted. Brother No problems noted. Brother No problems noted. Brother No problems noted. Son No problems noted. Social History Household Members: Spouse Housing: House Are you a primary primary care nurse to a significant other at home: No Do you presently have visiting nurse or other home services: No Alcohol intake: current Alcohol intake frequency: a few times a week Patient Tobacco Use Status: Never used Tobacco e-Cigarette/Vaping Use: Never Used Second Hand Smoke Exposure: No service: No Current occupational status: retired Cognitive needs: No Hearing needs: No Vision needs: Yes Review of Systems Const All systems reviewed & are unremarkable except as noted in HPI and below Card Denies chest pain and Denies dyspnea Resp Denies dyspnea GI Denies abdominal pain, Denies hematochezia, Denies change in bowel habits, Reports dyspepsia, Denies nausea and Denies vomiting Physical Exam Vital Signs: Last Vital Signs Pulse 84 04/20/23 10:00 BP 143/73 H 04/20/23 10:00 BMI result Body Mass Index 24.6 Resp Effort & Inspection: normal respiratory effort and able to speak in complete sentences Skin General skin exam: no rashes or lesions noted Extrem General: Yes full ROM Psych Appearance: grossly normal and well kempt Mental Status: mental status grossly normal Speech and movement: Normal speech and movement present and Clear speech present Affect: normal affect Attitude: cooperative Thought process: Normal thought process present Thought content: Normal thought content present Insight: Good insight present (Psych) Judgement: Good judgement present (Psych) Results Reviewed Results Reviewed: Results Reviewed: Name:Angie Thayer Age/Sex: 70/F Attending: Eileen Bowen MD : 1950 Submitted by: Eileen Bowen MD Copies to: Neo Hernandez MD MR #: [id number] ? Status: [facility] Collected: 03/23/21 Location: [facility] Received: 03/23/21 Diagnosis A.? Stomach, antrum, biopsy:? Antral-type mucosa with mild chronic, focally active, inflammation; no Helicobacter organisms seen. B.? Esophagus, distal, biopsy: - Cardiofundic-type mucosa with moderate chronic inactive inflammation; no intestinal metaplasia seen. - Squamous mucosa within normal limits. C.? Colon, ascending, polypectomy:? Tubular adenoma; no high grade dysplasia or carcinoma seen. Clinical History Pre-Op Dx:? Screening, acid reflux, abdominal pain, dysphagia Post-Op Dx: GERD, gastritis, colon polyp, diverticulosis, hemorrhoids, r/o H. pylori, r/o Castillo's You should undergo a colonoscopy again in 3 years. Endoscopy Findings: ESOPHAGUS: Tortuous esophagus with iincreased tertiary contractions without stricture or ring.? GE junction at 38 cms.? Irregular Z line - biopsied to check for Castillo's. Balloon dilation was performed with a 20 mm CRE balloon for 60 seconds STOMACH: Gastritis Colonoscopy Findings: One medium sized polyp removed Moderate diverticulosis seen in the entire colon Small hemorrhoids on retroflexed exam. Plan: Await pathology results Patient has an appointment on 04/08/21 in the GI Clinic with MARIANNA Tuttle . Repeat Colonoscopy interval based on path results - in 3 years if polyp is adenomatous and 10 years if polyps are hyperplastic. Above findings were reviewed with the patient and colon polyps and diverticulosis handouts were given in the discharge area Assessment & Plan Assessment & Plan (1) Tubular adenoma: Comment: Three year asymptomatic colonoscopy-repeat 02/2024 Code(s): D36.9 - Benign neoplasm, unspecified site (2) Acid reflux: Code(s): K21.9 - Gastro-esophageal reflux disease without esophagitis Plan: Continue to avoid culprits Continue PPI Orders: Orders Colonoscopy - GI Use Only 8 Months D36.9 - Benign neoplasm, unspecified site Medications: New polyethylene glycol 3350 (Miralax) Take as directed by mouth the day before your procedure. 238 grams PO ONCE PRN 238 grams 0RF laxative effect 1 day omeprazole 20 mg PO DAILY 90 caps 4RF bisacodyl (Dulcolax (bisacodyl)) Day before procedure, prep day Take 4 tablets by mouth upon awakening followed by large glass of water 20 mg (4 x 5 mg) PO ONCE 4 tabs 0RF colonoscopy prep 1 day Z12.11 - Encounter for screening for malignant neoplasm of colon Changed From methylcellulose (laxative) (Citrucel) 500 mg PO BID To methylcellulose (laxative) (Citrucel) 500 mg PO BID 180 tabs 4RF 90 days Patient Instructions: Reflux precautions reviewed Avoid culprits Omeprazole 20 mg daily Due for polyp surveillance colonoscopy 2023 -Dr. Bowen Coding Level of Care Code Est Pt Level 3 (58108) Diagnoses Tubular adenoma D36.9 Acid reflux K21.9 Time Spent (min) 20
[2023-04-20 10:00] VITALS: BP 143/73; PULSE 84; BMI 24.6
== END 2023-04-20 11:20 | disposition home or self-care (01) ==
PROVIDERS: PCP Internal Medicine; Visit Provider Physician Assistant
DX: D36.9 Benign neoplasm, unspecified site (principal); K21.9 Gastro-esophageal reflux disease without esophagitis
CPT/HCPCS: 99213

== ENCOUNTER → 2023-04-20 09:51 | Outpatient (BNVA) | payer MEDICARE, SELFPAY | PROVIDERS: PCP Internal Medicine; Visit Provider Physician Assistant | DX: D36.9 Benign neoplasm, unspecified site (principal); K21.9 Gastro-esophageal reflux disease without esophagitis | CPT/HCPCS: 99212 ==

== ENCOUNTER 2023-04-30 07:10 | Outpatient (REF) | payer MEDICARE, SELFPAY ==
[2023-04-30 07:24] LABS: MANUAL DIFF FLAG NO
[2023-04-30 07:34] LABS: Basophils Percent Auto 0.7 % (0-2); Eosinophils Absolute Auto 0.1 X10*3/uL (0.0-0.4); Eosinophils Percent Auto 2.1 % (0-4); Hematocrit 42.8 % (37.0-47.0); Hemoglobin 14.5 g/dl (12.0-16.0); Imm Gran Abs Auto 0.01 X10*3/uL (0.00-0.03); Imm Gran Pct Auto 0.2 % (0.0-0.4); Lymphocytes Absolute Auto 1.2 X10*3/uL (1.2-4.9); Lymphocytes Percent Auto 27.4 % (20-40); Mean Corpuscular HGB Conc 33.9 g/dl (31.0-35.0); Mean Corpuscular Hemoglobin 32.2 pg (27.0-33.0); Mean Corpuscular Volume 94.9 fL (80.0-98.0); Mean Platelet Volume 9.7 fL (9.4-12.3); Monocytes Absolute Auto 0.4 X10*3/uL (0.1-1.2); Neutrophils Absolute Auto 2.6 x10*3/uL (2.0-8.3); Neutrophils Percent Auto 59.6 % (45-73); Platelet Count 228 X10*3/uL (160-400); Red Blood Count 4.51 X10*6/uL (4.20-5.50); Red Cell Distribution Width 13.1 % (11.0-16.0); White Blood Count 4.4 X10*3/uL (4.8-10.8)
[2023-04-30 08:12] LABS: Alanine Aminotransferase 11 U/L (0-31); Albumin Level 4.3 g/dL (3.5-5.0); Alkaline Phosphatase 54 U/L (39-117); Anion Gap 13 (12-20); Aspartate Amino Transferase 21 U/L (5-31); Bilirubin Total 0.7 mg/dL (0.0-1.0); Blood Urea Nitrogen 13 mg/dL (9-16); Calcium 9.4 mg/dL (8.4-10.2); Carbon Dioxide 28 mmol/L (22-29); Chloride 104 mmol/L (96-108); Cholesterol 206 mg/dL (<200); Estimated Glomerular Filt Rate > 60; Glucose Fasting 106 mg/dL (60-99); HDL Cholesterol 87 mg/dL (>40); LDL Cholesterol Calculated 108 mg/dL (<100); Potassium 3.6 mmol/L (3.3-5.1); Sodium 141 mmol/L (135-145); Total Protein 7.1 g/dL (6.5-8.0); Triglycerides 58 mg/dL (<150)
[2023-04-30 08:26] LABS: Thyroid Stimulating Hormone 2.35 uIU/mL (0.32-4.0)
== END 2023-04-30 07:11 | disposition home or self-care (01) ==
LOC: HO.LAB 07:10
PROVIDERS: PCP Internal Medicine; Visit Provider Internal Medicine
DX: D64.9 Anemia, unspecified (principal); N28.9 Disorder of kidney and ureter, unspecified; E78.5 Hyperlipidemia, unspecified; E03.9 Hypothyroidism, unspecified
CPT/HCPCS: 36415; 80053; 80061; 84443; 85025

== ENCOUNTER 2023-05-11 13:32 | Outpatient (AMB) | payer MEDICARE, SELFPAY ==
[2023-05-11 13:37] VITALS: BP 146/84; PULSE 86; O2SAT 99; BMI 24.4
--- NOTE | 2023-05-11 13:37 | A.OFFPC_ITS ---
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 Accompanied by: Self / Same As Patient Allergies cefazolin [From Kefzol] Allergy (Severe, Verified 05/11/23 13:38) Rash clindamycin [CLINDAMYCIN] Allergy (Severe, Verified 05/11/23 13:38) RASH adhesive tape Allergy (Intermediate, Verified 05/11/23 13:38) REDNESS.BLISTERS cephalexin [Keflex] Allergy (Intermediate, Verified 05/11/23 13:38) Rash meperidine [Demerol] Allergy (Unknown, Verified 05/11/23 13:38) Unknown nitrofurantoin [Macrobid] Allergy (Unknown, Verified 05/11/23 13:38) Unknown Medication List - Last Reconciled 05/12/23 by Neo Hernandez MD atorvastatin 40 mg PO DAILY bisacodyl (Dulcolax (bisacodyl)) 20 mg (4 x 5 mg) PO ONCE 1 day hydrochlorothiazide 25 mg PO DAILY methylcellulose (laxative) (Citrucel) 500 mg PO BID 90 days omeprazole 20 mg PO DAILY polyethylene glycol 3350 (Miralax) 238 grams PO ONCE PRN 1 day raloxifene (Evista) 60 mg PO DAILY Tobacco use date assessed: 01/10/23 Fall risk assessment: No Falls in past year Last assessed Fall Risk: 05/11/23 Dental Screening Dental Screen Date: 05/11/23 Did you have a dental visit in the last 12 months?: Yes Did you have a dental problem in the last 6 months where you did not have access to dental care?: No Was dental information given to patient?: Patient has dentist HPI Annual Exam HPI Details hyperlipidemia htn and breast cancer in remission [facility] Medical History Breast cancer Diverticulosis GERD (gastroesophageal reflux disease) Hyperlipidemia Hypertension Surgical History History of bilateral cataract extraction History of esophagogastroduodenoscopy (EGD) Hx of colonoscopy History of prolapse of bladder History of mastectomy History of total abdominal hysterectomy and bilateral salpingo-oophorectomy History of D&C Family History Father No problems noted. Mother Uterine cancer CVD (cardiovascular disease) Diabetes Maternal Aunt Ovarian cancer Sister No problems noted. Brother No problems noted. Brother No problems noted. Brother No problems noted. Son No problems noted. Social History Household Members: Spouse Housing: House Are you a primary point of care specialist to a significant other at home: No Do you presently have visiting nurse or other home services: No Alcohol intake: current Alcohol intake frequency: a few times a week Patient Tobacco Use Status: Never used Tobacco e-Cigarette/Vaping Use: Never Used Second Hand Smoke Exposure: No service: No Current occupational status: retired Cognitive needs: No Hearing needs: No Vision needs: Yes Questionnaire PHQ-9 Over the last 2 weeks, how often have you been bothered by any of the following problems? 1. Little interest or pleasure in doing things: not at all 2. Feeling down, depressed, or hopeless: not at all 3. Trouble falling or staying asleep, or sleeping too much: not at all 4. Feeling tired or having little energy: not at all 5. Poor appetite or overeating: not at all 6. Feeling bad about yourself - or that you are a failure or have let yourself or your family down: not at all 7. Trouble concentrating on things, such as reading the newspaper or watching television: not at all 8. Moving or speaking so slowly that other people could have noticed. Or the opposite - being so fidgety or restless that you have been moving around a lot more than usual: not at all 9. Thoughts that you would be better off or of hurting yourself in some way: not at all Total score: 0 Depression Screening Interpretation: Negative Depression Screening Done: Yes 94325 - PHQ-9 Billing: Yes Source: Developed by Drs. Mynor Priest, Malu Jones, Trev Luna and colleagues, with an educational vicky from [employer]. Thrive Questionnaire Date Thrive assessed: 09/10/22 Currently or been in a relationship where the following occur: no concerns reported AUDIT C Alcohol Use Questionnaire (AUDIT-C) 1. How often do you have a drink containing alcohol?: Never Total Score: 0 Score Reviewed/Action Taken: Yes AYLA-7 AMB Questionnaire AYLA-7 Date AYLA - 7 assessed: 09/10/22 Source: Developed by Drs. Mynor Priest, Malu Jones, Trev Luna and colleagues, with an educational vicky from [employer]. Review of Systems Const Denies chills, Denies fatigue, Denies headache(s) and Denies weight loss Eyes Denies change in vision, Denies diplopia and Denies eye pain ENT Denies vertigo, Denies dizziness, Denies headache(s) and Denies nasal discharge Card Denies chest pain, Denies rapid heart rate and Denies dyspnea on exertion Resp Denies chest congestion, Denies cough, Denies pain with cough and Denies dyspnea on exertion GI Denies abdominal pain, Denies hematochezia and Denies change in bowel habits Musc Denies myalgias, Denies arthralgias and Denies joint swelling Skin/Breast Denies lesions and Denies unusual bruising Neuro Denies vertigo, Denies dizziness, Denies headache(s) and Denies focal weakness Endo Denies fatigue Physical exam (Primary Care) Vital Signs: Last Vital Signs Pulse 86 05/11/23 13:37 BP 146/84 H 05/11/23 13:37 Pulse Ox 99 05/11/23 13:37 Oxygen Delivery Method Room Air 05/11/23 13:37 BMI result Body Mass Index 24.4 Tobacco/Smoking Status: Tobacco use Status Tobacco use date assessed 01/10/23 05/11/23 13:39 Patient Tobacco Use Status Never used Tobacco 05/11/23 13:39 e-Cigarette/Vaping Use Never Used 05/11/23 13:39 PHQ-9: PHQ-9 Score PHQ-9: Total score 0 05/11/23 13:39 Depression Screening Interpretation: Negative Thrive Assessment: Date of Thrive Assessment Date Thrive assessed 09/10/22 05/11/23 13:39 Currently or been in a relationship where the following occur: no concerns reported Const General: cooperative, healthy appearing and no acute distress Orientation/consciousness: oriented to person, oriented to place and oriented to time HENMT Head: Yes normal to inspection, Yes normocephalic and Yes atraumatic Mouth: Normal oral and palatal mucosa present and tongue normal Throat: Yes posterior oropharynx normal and Yes uvula midline Eyes General: appearance normal, both eyes and all related structures Neck Neck: Yes normal visual inspection, Yes full ROM and Yes no lymphadenopathy Thyroid: Thyroid normal Carotids: normal carotid upstroke Chest Chest palpation & inspection: normal inspection of the chest Resp Effort & Inspection: normal respiratory effort and able to speak in complete s entences Auscultation: clear to auscultation bilaterally Cardio Jugular venous distension: no JVD Palpation: normal PMI Rate: regular rate Rhythm: regular rhythm Heart sounds: S1 normal heart sound present and S2 normal heart sound present GI Inspection: Yes normal to inspection Palpation (GI): Soft to palpation and No hepatosplenomegaly present Auscultation: normal bowel sounds General: Yes no CVA tenderness Back/Spine/Pelvis Back: no CVA tenderness Skin General skin exam: no rashes or lesions noted Neuro General: oriented to person, oriented to place and oriented to time Extrem General: Yes normal to inspection and Yes full ROM Assessment and Plan Assessment & Plan (1) Physical exam: Code(s): Z00.00 - Encounter for general adult medical examination without abnormal findings Plan: stable (2) Breast cancer: Code(s): C50.919 - Malignant neoplasm of unspecified site of unspecified female breast Plan: as per onc (3) Hyperlipidemia: Code(s): E78.5 - Hyperlipidemia, unspecified Plan: stable; same rx (4) Hypertension: Code(s): I10 - Essential (primary) hypertension Plan: stable; same rx Orders: Orders Comprehensive [place]. Panel Fast Today N28.9 - Disorder of kidney and ureter, unspecified Complete Blood Count Auto Diff Today D64.9 - Anemia, unspecified Thyroid Stimulating Hormone Today E03.9 - Hypothyroidism, unspecified Lipid Panel Today E78.5 - Hyperlipidemia, unspecified Coding Level of Care Code Est Pt Prev Care >65y(27453) Diagnoses Physical exam Z00.00 Breast cancer C50.919 Hyperlipidemia E78.5 Hypertension I10
== END 2023-05-11 14:02 | disposition home or self-care (01) ==
PROVIDERS: PCP Internal Medicine; Visit Provider Internal Medicine
DX: Z00.00 Encounter for general adult medical examination without abnormal findings (principal); C50.919 Malignant neoplasm of unspecified site of unspecified female breast; E78.5 Hyperlipidemia, unspecified; I10 Essential (primary) hypertension
CPT/HCPCS: 99397

== ENCOUNTER 2023-09-06 08:04 | Outpatient (REF) | payer MEDICARE, SELFPAY ==
[2023-09-06 08:27] LABS: MANUAL DIFF FLAG NO
[2023-09-06 09:20] LABS: Basophils Percent Auto 0.4 % (0-2); Eosinophils Absolute Auto 0.1 X10*3/uL (0.0-0.4); Eosinophils Percent Auto 1.6 % (0-4); Hematocrit 42.1 % (37.0-47.0); Hemoglobin 14.1 g/dl (12.0-16.0); Imm Gran Abs Auto 0.01 X10*3/uL (0.00-0.03); Imm Gran Pct Auto 0.2 % (0.0-0.4); Lymphocytes Absolute Auto 1.1 X10*3/uL (1.2-4.9); Lymphocytes Percent Auto 24.2 % (20-40); Mean Corpuscular HGB Conc 33.5 g/dl (31.0-35.0); Mean Corpuscular Hemoglobin 31.5 pg (27.0-33.0); Mean Platelet Volume 10.1 fL (9.4-12.3); Monocytes Absolute Auto 0.5 X10*3/uL (0.1-1.2); Monocytes Percent Auto 10.3 % (2-11); Neutrophils Absolute Auto 2.8 x10*3/uL (2.0-8.3); Neutrophils Percent Auto 63.3 % (45-73); Platelet Count 235 X10*3/uL (160-400); Red Blood Count 4.48 X10*6/uL (4.20-5.50); Red Cell Distribution Width 12.8 % (11.0-16.0); White Blood Count 4.5 X10*3/uL (4.8-10.8)
[2023-09-06 10:05] LABS: Alanine Aminotransferase 13 U/L (0-31); Albumin Level 4.2 g/dL (3.5-5.0); Alkaline Phosphatase 58 U/L (39-117); Anion Gap 12 (12-20); Aspartate Amino Transferase 20 U/L (5-31); Bilirubin Total 0.7 mg/dL (0.0-1.0); Blood Urea Nitrogen 16 mg/dL (9-16); Calcium 9.6 mg/dL (8.4-10.2); Carbon Dioxide 29 mmol/L (22-29); Chloride 106 mmol/L (96-108); Cholesterol 214 mg/dL (<200); Estimated Glomerular Filt Rate > 60; Glucose Fasting 97 mg/dL (60-99); HDL Cholesterol 94 mg/dL (>40); LDL Cholesterol Calculated 107 mg/dL (<100); Potassium 3.3 mmol/L (3.3-5.1); Sodium 144 mmol/L (135-145); Total Protein 7.3 g/dL (6.5-8.0); Triglycerides 68 mg/dL (<150)
[2023-09-06 10:08] LABS: Thyroid Stimulating Hormone 1.98 uIU/mL (0.32-4.0)
== END 2023-09-06 08:05 | disposition home or self-care (01) ==
LOC: HO.LAB 08:04
PROVIDERS: PCP Internal Medicine; Visit Provider Internal Medicine
DX: D64.9 Anemia, unspecified (principal)
CPT/HCPCS: 36415; 80053; 80061; 84443; 85025

== ENCOUNTER 2023-09-09 10:17 | Outpatient (AMB) | payer MEDICARE, SELFPAY ==
[2023-09-09 10:18] VITALS: BP 150/80; PULSE 88; O2SAT 98; BMI 25.2
--- NOTE | 2023-09-09 10:18 | MHC.PC.OV ---
Vital Signs 09/09/23 10:18 Height 5 ft 5.5 in Weight 154 lb BMI 25.2 BP 150/80 H Blood Pressure Location Lt brachial Position Sitting Pulse 88 Pulse Source Pulse Oximeter Pulse Oximetry (%) 98 Oxygen Delivery Method Room Air Intake Visit Reasons: 4 months Care Transition Coordinator Required: No Captain/Check Airman: Not Required per policy Accompanied by: Self / Same As Patient Allergies cefazolin [From Kefzol] Allergy (Severe, Verified 09/09/23 10:19) Rash clindamycin [CLINDAMYCIN] Allergy (Severe, Verified 09/09/23 10:19) RASH adhesive tape Allergy (Intermediate, Verified 09/09/23 10:19) REDNESS.BLISTERS cephalexin [Keflex] Allergy (Intermediate, Verified 09/09/23 10:19) Rash meperidine [Demerol] Allergy (Unknown, Verified 09/09/23 10:19) Unknown nitrofurantoin [Macrobid] Allergy (Unknown, Verified 09/09/23 10:19) Unknown Medication List - Last Reconciled 09/09/23 by Neo Hernandez MD atorvastatin 40 mg PO DAILY bisacodyl (Dulcolax (bisacodyl)) 20 mg (4 x 5 mg) PO ONCE 1 day hydrochlorothiazide 25 mg PO DAILY methylcellulose (laxative) (Citrucel) 500 mg PO BID 90 days omeprazole 20 mg PO DAILY polyethylene glycol 3350 (Miralax) 238 grams PO ONCE PRN 1 day raloxifene (Evista) 60 mg PO DAILY Tobacco use date assessed: 09/09/23 Fall risk assessment: No Falls in past year Last assessed Fall Risk: 09/09/23 Dental Screening Dental Screen Date: 09/09/23 Did you have a dental visit in the last 12 months?: Yes Did you have a dental problem in the last 6 months where you did not have access to dental care?: No Was dental information given to patient?: Patient has dentist HPI 4 months HPI Details hyperlipidemia HTN and breast cancer; doing well [facility] Medical History Breast cancer Diverticulosis GERD (gastroesophageal reflux disease) Hyperlipidemia Hypertension Surgical History History of bilateral cataract extraction History of esophagogastroduodenoscopy (EGD) Hx of colonoscopy History of prolapse of bladder History of mastectomy History of total abdominal hysterectomy and bilateral salpingo-oophorectomy History of D&C Family History (Updated 09/09/23 @ 10:20 by ARMIN Yeager) Father No problems noted. Mother Uterine cancer CVD (cardiovascular disease) Diabetes Maternal Aunt Ovarian cancer Sister No problems noted. Brother No problems noted. Brother No problems noted. Brother No problems noted. Son No problems noted. Social History Household Members: Spouse Housing: House Are you a primary manager home healthcare to a significant other at home: No Do you presently have visiting nurse or other home services: No Alcohol intake: current Alcohol intake frequency: a few times a week Patient Tobacco Use Status: Never used Tobacco e-Cigarette/Vaping Use: Never Used Second Hand Smoke Exposure: No service: No Current occupational status: retired Cognitive needs: No Hearing needs: No Vision needs: Yes Questionnaire PHQ-9 Over the last 2 weeks, how often have you been bothered by any of the following problems? 1. Little interest or pleasure in doing things: not at all 2. Feeling down, depressed, or hopeless: not at all 3. Trouble falling or staying asleep, or sleeping too much: not at all 4. Feeling tired or having little energy: not at all 5. Poor appetite or overeating: not at all 6. Feeling bad about yourself - or that you are a failure or have let yourself or your family down: not at all 7. Trouble concentrating on things, such as reading the newspaper or watching television: not at all 8. Moving or speaking so slowly that other people could have noticed. Or the opposite - being so fidgety or restless that you have been moving around a lot more than usual: not at all 9. Thoughts that you would be better off or of hurting yourself in some way: not at all Total score: 0 Depression Screening Interpretation: Negative Depression Screening Done: Yes 25837 - PHQ-9 Billing: Yes Source: Developed by Drs. Mynor Priest, Malu Jones, Trev Luna and colleagues, with an educational vicky from [employer]. Thrive Questionnaire Date Thrive assessed: 09/09/23 I am a: Patient What is your living situation today?: I have a steady place to live Within the past 12 months, did the food you bought not last and you didn't have the money to get more?: Never true Within the past 12 months, did you worry whether your food would run out before you got money to buy more?: Never true Do you have trouble paying for medicines?: No Do you have trouble getting transportation to medical appointments?: No Do you have trouble paying your heating and electricity bill?: No Do you have trouble taking care of your child, family member or friend?: No Do you have trouble with day-to-day activities such as bathing, preparing meals, shopping, managing finances, etc.?: No Are you currently unemployed and looking for a job?: No Are you interested in more education?: No Please select the resources that you would like help with: None THRIVE Score: 0 AUDIT C Alcohol Use Questionnaire (AUDIT-C) 1. How often do you have a drink containing alcohol?: Never Total Score: 0 Score Reviewed/Action Taken: Yes AYLA-7 AMB Questionnaire AYLA-7 Date AYLA - 7 assessed: 09/09/23 Feeling nervous, anxious, or on edge: 0 = Not at all Not being able to stop or control worryin = Not at all Worrying too much about different things: 0 = Not at all Trouble relaxin = Not at all Being so restless that it is hard to sit still: 0 = Not at all Becoming easily annoyed or irritable: 0 = Not at all Feeling afraid as if something awful might happen: 0 = Not at all Total AYLA-7 score (0-4 normal; 5-9 mild; 10-14 moderate; 15-21 severe): 0 Source: Developed by Drs. Mynor Priest, Malu Jones, Trev Luna and colleagues, with an educational vicky from [employer]. Review of Systems Const Denies chills, Denies headache(s) and Denies weight loss ENT Denies headache(s) Card Denies chest pain, Denies syncope, Denies irregular heart rhythm and Denies dyspnea Resp Denies chest congestion, Denies cough and Denies dyspnea GI Denies abdominal pain, Denies change in stool character, Denies nausea and Denies vomiting Musc Denies deformity and Denies joint swelling Neuro Denies syncope and Denies headache(s) Physical exam (Primary Care) Vital Signs: Last Vital Signs Pulse 88 09/09/23 10:18 BP 150/80 H 09/09/23 10:18 Pulse Ox 98 09/09/23 10:18 Oxygen Delivery Method Room Air 09/09/23 10:18 BMI result Body Mass Index 25.2 Tobacco/Smoking Status: Tobacco use Status Tobacco use date assessed 09/09/23 09/09/23 10:24 Patient Tobacco Use Status Never used Tobacco 09/09/23 10:24 e-Cigarette/Vaping Use Never Used 09/09/23 10:24 PHQ-9: PHQ-9 Score PHQ-9: Total score 0 09/09/23 10:24 Depression Screening Interpretation: Negative Thrive Assessment: Date of Thrive Assessment Date Thrive assessed 09/09/23 09/09/23 10:24 Const General: cooperative, comfortable, no acute distress and alert Neck Neck: Yes no lymphadenopathy Thyroid: Thyroid normal Resp Effort & Inspection: normal respiratory effort Auscultation: clear to auscultation bilaterally Percussion: percussion normal Cardio Jugular venous distension: no JVD Palpation: normal PMI Rate: regular rate Rhythm: regular rhythm Heart sounds: S1 normal heart sound present and S2 normal heart sound present GI Inspection: Yes normal to inspection Palpation (GI): No hepatosplenomegaly present Skin General skin exam: no rashes or lesions noted Extrem General: Yes no clubbing, cyanosis or edema Assessment and Plan Assessment & Plan (1) Breast cancer: Code(s): C50.919 - Malignant neoplasm of unspecified site of unspecified female breast Plan: as per onc (2) Hyperlipidemia: Code(s): E78.5 - Hyperlipidemia, unspecified Plan: stable; same rx (3) Hypertension: Code(s): I10 - Essential (primary) hypertension Plan: stable ;same rx Orders: Orders Complete Blood Count Auto Diff Today D64.9 - Anemia, unspecified Lipid Panel Today E78.5 - Hyperlipidemia, unspecified Comprehensive [place]. Panel Fast Today N28.9 - Disorder of kidney and ureter, unspecified Coding Level of Care Code Est Pt Level 4 (49376) Diagnoses Breast cancer C50.919 Hyperlipidemia E78.5 Hypertension I10
== END 2023-09-09 10:38 | disposition home or self-care (01) ==
PROVIDERS: PCP Internal Medicine; Visit Provider Internal Medicine
DX: C50.919 Malignant neoplasm of unspecified site of unspecified female breast (principal); E78.5 Hyperlipidemia, unspecified; I10 Essential (primary) hypertension
CPT/HCPCS: 99214

== ENCOUNTER 2024-01-05 06:40 | Outpatient (REF) | payer MEDICARE, SELFPAY ==
[2024-01-05 06:59] LABS: MANUAL DIFF FLAG NO
[2024-01-05 08:09] LABS: Basophils Percent Auto 0.7 % (0-2); Eosinophils Absolute Auto 0.1 X10*3/uL (0.0-0.4); Eosinophils Percent Auto 2.9 % (0-4); Hemoglobin 14.1 g/dl (12.0-16.0); Lymphocytes Absolute Auto 1.2 X10*3/uL (1.2-4.9); Lymphocytes Percent Auto 26.2 % (20-40); Mean Corpuscular HGB Conc 34.4 g/dl (31.0-35.0); Mean Corpuscular Hemoglobin 32.5 pg (27.0-33.0); Mean Corpuscular Volume 94.5 fL (80.0-98.0); Monocytes Absolute Auto 0.5 X10*3/uL (0.1-1.2); Monocytes Percent Auto 9.9 % (2-11); Neutrophils Absolute Auto 2.7 x10*3/uL (2.0-8.3); Neutrophils Percent Auto 60.3 % (45-73); Platelet Count 235 X10*3/uL (160-400); Red Blood Count 4.34 X10*6/uL (4.20-5.50); Red Cell Distribution Width 12.8 % (11.0-16.0); White Blood Count 4.5 X10*3/uL (4.8-10.8)
[2024-01-05 08:43] LABS: Alanine Aminotransferase 12 U/L (0-31); Albumin Level 4.2 g/dL (3.5-5.0); Alkaline Phosphatase 54 U/L (39-117); Anion Gap 14 (12-20); Aspartate Amino Transferase 21 U/L (5-31); Bilirubin Total 0.8 mg/dL (0.0-1.0); Blood Urea Nitrogen 16 mg/dL (9-16); Calcium 9.7 mg/dL (8.4-10.2); Carbon Dioxide 26 mmol/L (22-29); Chloride 105 mmol/L (96-108); Cholesterol 196 mg/dL (<200); Estimated Glomerular Filt Rate > 60; Glucose Fasting 96 mg/dL (60-99); HDL Cholesterol 81 mg/dL (>40); LDL Cholesterol Calculated 104 mg/dL (<100); Potassium 3.6 mmol/L (3.3-5.1); Sodium 141 mmol/L (135-145); Total Protein 7.1 g/dL (6.5-8.0); Triglycerides 58 mg/dL (<150)
== END 2024-01-05 06:41 | disposition home or self-care (01) ==
LOC: HO.LAB 06:40
PROVIDERS: PCP Internal Medicine; Visit Provider Internal Medicine
DX: D64.9 Anemia, unspecified (principal); N28.9 Disorder of kidney and ureter, unspecified; E78.5 Hyperlipidemia, unspecified
CPT/HCPCS: 36415; 80053; 80061; 85025

== ENCOUNTER 2024-01-09 10:19 | Outpatient (AMB) | payer MEDICARE, SELFPAY ==
--- NOTE | 2024-01-09 10:22 | MHC.PC.OV ---
Vital Signs 01/09/24 10:23 Height 5 ft 5.5 in Weight 152 lb BMI 24.9 BP 148/88 H Blood Pressure Location Lt brachial Position Sitting Pulse 74 Pulse Source Pulse Oximeter Pulse Oximetry (%) 98 Oxygen Delivery Method Room Air Intake Visit Reasons: 4mth f/u Allergies cefazolin [From Kefzol] Allergy (Severe, Verified 01/09/24 10:23) Rash clindamycin [CLINDAMYCIN] Allergy (Severe, Verified 01/09/24 10:23) RASH adhesive tape Allergy (Intermediate, Verified 01/09/24 10:23) REDNESS.BLISTERS cephalexin [Keflex] Allergy (Intermediate, Verified 01/09/24 10:23) Rash meperidine [Demerol] Allergy (Unknown, Verified 01/09/24 10:23) Unknown nitrofurantoin [Macrobid] Allergy (Unknown, Verified 01/09/24 10:23) Unknown Medication List - Last Reconciled 01/09/24 by Neo Hernandez MD atorvastatin 40 mg PO DAILY bisacodyl (Dulcolax (bisacodyl)) 20 mg (4 x 5 mg) PO ONCE 1 day hydrochlorothiazide 25 mg PO DAILY methylcellulose (laxative) (Citrucel) 500 mg PO BID 90 days omeprazole 20 mg PO DAILY polyethylene glycol 3350 (Miralax) 238 grams PO ONCE PRN 1 day raloxifene (Evista) 60 mg PO DAILY Tobacco use date assessed: 09/09/23 Fall risk assessment: No Falls in past year Last assessed Fall Risk: 01/09/24 Dental Screening Dental Screen Date: 09/09/23 HPI 4mth f/u HPI Details hyperlipidemia and hypertension; doing well; compliant [facility] Medical History Breast cancer Diverticulosis GERD (gastroesophageal reflux disease) Hyperlipidemia Hypertension Surgical History History of bilateral cataract extraction History of esophagogastroduodenoscopy (EGD) Hx of colonoscopy History of prolapse of bladder History of mastectomy History of total abdominal hysterectomy and bilateral salpingo-oophorectomy History of D&C Family History Father No problems noted. Mother Uterine cancer CVD (cardiovascular disease) Diabetes Maternal Aunt Ovarian cancer Sister No problems noted. Brother No problems noted. Brother No problems noted. Brother No problems noted. Son No problems noted. Social History Household Members: Spouse Housing: House Are you a primary resident care director to a significant other at home: No Do you presently have visiting nurse or other home services: No Alcohol intake: current Alcohol intake frequency: a few times a week Patient Tobacco Use Status: Never used Tobacco e-Cigarette/Vaping Use: Never Used Second Hand Smoke Exposure: No service: No Current occupational status: retired Cognitive needs: No Hearing needs: No Vision needs: Yes Questionnaire PHQ-9 Over the last 2 weeks, how often have you been bothered by any of the following problems? 1. Little interest or pleasure in doing things: not at all 2. Feeling down, depressed, or hopeless: not at all 3. Trouble falling or staying asleep, or sleeping too much: not at all 4. Feeling tired or having little energy: not at all 5. Poor appetite or overeating: not at all 6. Feeling bad about yourself - or that you are a failure or have let yourself or your family down: not at all 7. Trouble concentrating on things, such as reading the newspaper or watching television: not at all 8. Moving or speaking so slowly that other people could have noticed. Or the opposite - being so fidgety or restless that you have been moving around a lot more than usual: not at all 9. Thoughts that you would be better off or of hurting yourself in some way: not at all Total score: 0 Depression Screening Interpretation: Negative Depression Screening Done: Yes 60237 - PHQ-9 Billing: Yes Source: Developed by Drs. Mynor Priest, Malu Jones, Trev Luna and colleagues, with an educational vicky from [employer]. Thrive Questionnaire Date Thrive assessed: 09/09/23 AUDIT C Alcohol Use Questionnaire (AUDIT-C) 1. How often do you have a drink containing alcohol?: Never Total Score: 0 Score Reviewed/Action Taken: Yes AYLA-7 AMB Questionnaire AYLA-7 Date AYLA - 7 assessed: 09/09/23 Source: Developed by Drs. Mynor Priest, Malu Jones, Trev Luna and colleagues, with an educational vicky from [employer]. Review of Systems Const Denies chills, Denies headache(s) and Denies weight loss ENT Denies headache(s) Card Denies chest pain, Denies syncope, Denies irregular heart rhythm and Denies dyspnea Resp Denies chest congestion, Denies cough and Denies dyspnea GI Denies abdominal pain, Denies change in stool character, Denies nausea and Denies vomiting Musc Denies deformity and Denies joint swelling Neuro Denies syncope and Denies headache(s) Physical exam (Primary Care) Vital Signs: Last Vital Signs Pulse 74 01/09/24 10:23 BP 148/88 H 01/09/24 10:23 Pulse Ox 98 01/09/24 10:23 Oxygen Delivery Method Room Air 01/09/24 10:23 BMI result Body Mass Index 24.9 Tobacco/Smoking Status: Tobacco use Status Tobacco use date assessed 09/09/23 01/09/24 10:27 Patient Tobacco Use Status Never used Tobacco 01/09/24 10:27 e-Cigarette/Vaping Use Never Used 01/09/24 10:27 PHQ-9: PHQ-9 Score PHQ-9: Total score 0 01/09/24 10:27 Depression Screening Interpretation: Negative Thrive Assessment: Date of Thrive Assessment Date Thrive assessed 09/09/23 01/09/24 10:27 Const General: cooperative, comfortable, no acute distress and alert Neck Neck: Yes no lymphadenopathy Thyroid: Thyroid normal Resp Effort & Inspection: normal respiratory effort Auscultation: clear to auscultation bilaterally Percussion: percussion normal Cardio Jugular venous distension: no JVD Palpation: normal PMI Rate: regular rate Rhythm: regular rhythm Heart sounds: S1 normal heart sound present and S2 normal heart sound present GI Inspection: Yes normal to inspection Palpation (GI): No hepatosplenomegaly present Skin General skin exam: no rashes or lesions noted Extrem General: Yes no clubbing, cyanosis or edema Assessment and Plan Assessment & Plan (1) Hypertension: Code(s): I10 - Essential (primary) hypertension Plan: stable; same rx Orders: Orders Lipid Panel Today Z13.220 - Encounter for screening for lipoid disorders Coding Level of Care Code Est Pt Level 3 (04620) Diagnoses Hypertension I10
[2024-01-09 10:23] VITALS: BP 148/88; PULSE 74; O2SAT 98; BMI 24.9
== END 2024-01-09 10:45 | disposition home or self-care (01) ==
PROVIDERS: PCP Internal Medicine; Visit Provider Internal Medicine
DX: I10 Essential (primary) hypertension (principal)
CPT/HCPCS: 99213

== ENCOUNTER 2024-02-16 09:46 | Outpatient (REF) | payer MEDICARE, SELFPAY ==
--- NOTE | ~2024-02-16 | MM_ITS ---
EXAMINATION: MM SCREENING DIGITAL BREAST TOMOSYNTHESIS, BILATERAL CLINICAL INFORMATION: Screening. Asymptomatic. Status post right mastectomy. COMPARISON: Mammography: This study is compared with prior exams dating back to TECHNIQUE: Digital breast tomosynthesis is performed in both the craniocaudal and mediolateral oblique views along with computer-aided detection (CAD). Synthesized 2D images are generated from the tomosynthesis. FINDINGS: There are scattered areas of fibroglandular density (ACR BI-RADS breast composition Category b). There are no significant masses, abnormal calcifications, or other abnormalities. MM/MM tomosynthesis screening LT IMPRESSION: No mammographic evidence of malignancy. ASSESSMENT: BI-RADS BI-RADS 1 - Negative RECOMMENDATION: Routine annual mammography screening. 1 year F/U This examination should not preclude the clinical evaluation of a suspicious palpable abnormality. This patient's information was entered into a reminder system with a target due date for their next mammogram. Electronically signed by: Eleanor Valles MD 03/06/2024 01:15 PM EDT
== END 2024-02-16 09:47 | disposition home or self-care (01) ==
LOC: HO.MAMMO 09:46
PROVIDERS: PCP Internal Medicine; Visit Provider Internal Medicine
DX: Z12.31 Encounter for screening mammogram for malignant neoplasm of breast (principal)
CPT/HCPCS: 77063; 77067

== ENCOUNTER → 2024-02-16 10:00 | Outpatient (BNV) | payer MEDICARE, SELFPAY | PROVIDERS: PCP Internal Medicine; Visit Provider Radiology Diagnostic Radiology | DX: Z12.31 Encounter for screening mammogram for malignant neoplasm of breast (principal) | CPT/HCPCS: 77063; 77067 ==

== ENCOUNTER 2024-04-26 06:42 | Outpatient (REF) | payer MEDICARE, SELFPAY ==
[2024-04-26 08:36] LABS: Cholesterol 204 mg/dL (<200); HDL Cholesterol 92 mg/dL (>40); LDL Cholesterol Calculated 100 mg/dL (<100); Triglycerides 63 mg/dL (<150)
== END 2024-04-26 06:43 | disposition home or self-care (01) ==
LOC: HO.LAB 06:42
PROVIDERS: PCP Internal Medicine; Visit Provider Internal Medicine
DX: Z13.220 Encounter for screening for lipoid disorders (principal)
CPT/HCPCS: 36415; 80061

== ENCOUNTER 2024-04-30 10:29 | Outpatient (AMB) | payer MEDICARE, SELFPAY ==
[2024-04-30 10:37] VITALS: BP 132/86; PULSE 86; O2SAT 99; BMI 24.5
--- NOTE | 2024-04-30 10:37 | MHC.PC.OV ---
Vital Signs 04/30/24 10:37 Height 5 ft 5.5 in Weight 149 lb 8 oz BMI 24.5 BP 132/86 Blood Pressure Location Lt brachial Position Sitting Pulse 86 Pulse Source Pulse Oximeter Pulse Oximetry (%) 99 Oxygen Delivery Method Room Air Intake Visit Re[facility] Personal Banker Required: No Accompanied by: Self / Same As Patient Allergies cefazolin [From Kefzol] Allergy (Severe, Verified 04/30/24 10:37) Rash clindamycin [CLINDAMYCIN] Allergy (Severe, Verified 04/30/24 10:37) RASH adhesive tape Allergy (Intermediate, Verified 04/30/24 10:37) REDNESS.BLISTERS cephalexin [Keflex] Allergy (Intermediate, Verified 04/30/24 10:37) Rash meperidine [Demerol] Allergy (Unknown, Verified 04/30/24 10:37) Unknown nitrofurantoin [Macrobid] Allergy (Unknown, Verified 04/30/24 10:37) Unknown Medication List - Last Reconciled 04/30/24 by Neo Hernandez MD atorvastatin 40 mg PO DAILY bisacodyl (Dulcolax (bisacodyl)) 20 mg (4 x 5 mg) PO ONCE 1 day hydrochlorothiazide 25 mg PO DAILY methylcellulose (laxative) (Citrucel) 500 mg PO BID 90 days omeprazole 20 mg PO DAILY polyethylene glycol 3350 (Miralax) 238 grams PO ONCE PRN 1 day raloxifene (Evista) 60 mg PO DAILY Tobacco use date assessed: 04/30/24 Fall risk assessment: No Falls in past year Last assessed Fall Risk: 04/30/24 Dental Screening Dental Screen Date: 04/30/24 Did you have a dental visit in the last 12 months?: Yes Did you have a dental problem in the last 6 months where you did not have access to dental care?: No Was dental information given to patient?: Patient has dentist HPI 4mt f/u HPI Details hypertension on rx; doing well and compliant [facility] Medical History Breast cancer Diverticulosis GERD (gastroesophageal reflux disease) Hyperlipidemia Hypertension Surgical History History of bilateral cataract extraction History of esophagogastroduodenoscopy (EGD) Hx of colonoscopy History of prolapse of bladder History of mastectomy History of total abdominal hysterectomy and bilateral salpingo-oophorectomy History of D&C Family History Father No problems noted. Mother Uterine cancer CVD (cardiovascular disease) Diabetes Maternal Aunt Ovarian cancer Sister No problems noted. Brother No problems noted. Brother No problems noted. Brother No problems noted. Son No problems noted. Social History Household Members: Spouse Housing: House Are you a primary care team coordinator scheduler to a significant other at home: No Do you presently have visiting nurse or other home services: No Alcohol intake: current Alcohol intake frequency: a few times a week Patient Tobacco Use Status: Never used Tobacco e-Cigarette/Vaping Use: Never Used Second Hand Smoke Exposure: No service: No Current occupational status: retired Cognitive needs: No Hearing needs: No Vision needs: Yes Questionnaire PHQ-9 Over the last 2 weeks, how often have you been bothered by any of the following problems? 1. Little interest or pleasure in doing things: not at all 2. Feeling down, depressed, or hopeless: not at all 3. Trouble falling or staying asleep, or sleeping too much: not at all 4. Feeling tired or having little energy: not at all 5. Poor appetite or overeating: not at all 6. Feeling bad about yourself - or that you are a failure or have let yourself or your family down: not at all 7. Trouble concentrating on things, such as reading the newspaper or watching television: not at all 8. Moving or speaking so slowly that other people could have noticed. Or the opposite - being so fidgety or restless that you have been moving around a lot more than usual: not at all 9. Thoughts that you would be better off or of hurting yourself in some way: not at all Total score: 0 Depression Screening Interpretation: Negative Depression Screening Done: Yes 78019 - PHQ-9 Billing: Yes Source: Developed by Drs. Mynor Priest, Malu Jones, Trev Luna and colleagues, with an educational vicky from [employer]. Thrive Questionnaire Date Thrive assessed: 04/30/24 I am a: Patient What is your living situation today?: I have a steady place to live Within the past 12 months, did the food you bought not last and you didn't have the money to get more?: Never true Within the past 12 months, did you worry whether your food would run out before you got money to buy more?: Never true Do you have trouble paying for medicines?: No Do you have trouble getting transportation to medical appointments?: No Do you have trouble paying your heating and electricity bill?: No Do you have trouble taking care of your child, family member or friend?: No Do you have trouble with day-to-day activities such as bathing, preparing meals, shopping, managing finances, etc.?: No Are you currently unemployed and looking for a job?: No Are you interested in more education?: No Please select the resources that you would like help with: None Currently or been in a relationship where the following occur: No concerns reported THRIVE Score: 0 AUDIT C Alcohol Use Questionnaire (AUDIT-C) 1. How often do you have a drink containing alcohol?: Monthly or less 2. How many drinks containing alcohol do you have on a typical day when you are drinking?: 1 or 2 3. How often do you have six or more drinks on one occasion?: Never Total Score: 1 Score Reviewed/Action Taken: Yes AYLA-7 AMB Questionnaire AYLA-7 Date AYLA - 7 assessed: 04/30/24 Feeling nervous, anxious, or on edge: 0 = Not at all Not being able to stop or control worryin = Not at all Worrying too much about different things: 0 = Not at all Trouble relaxin = Not at all Being so restless that it is hard to sit still: 0 = Not at all Becoming easily annoyed or irritable: 0 = Not at all Feeling afraid as if something awful might happen: 0 = Not at all Total AYLA-7 score (0-4 normal; 5-9 mild; 10-14 moderate; 15-21 severe): 0 Source: Developed by Drs. Mynor Priest, Malu Jones, Trev Luna and colleagues, with an educational vicky from [employer]. Review of Systems Const Denies chills, Denies headache(s) and Denies weight loss ENT Denies headache(s) Card Denies chest pain, Denies syncope, Denies irregular heart rhythm and Denies dyspnea Resp Denies chest congestion, Denies cough and Denies dyspnea GI Denies abdominal pain, Denies change in stool character, Denies nausea and Denies vomiting Musc Denies deformity and Denies joint swelling Neuro Denies syncope and Denies headache(s) Physical exam (Primary Care) Vital Signs: Last Vital Signs Pulse 86 04/30/24 10:37 BP 132/86 04/30/24 10:37 Pulse Ox 99 04/30/24 10:37 Oxygen Delivery Method Room Air 04/30/24 10:37 BMI result Body Mass Index 24.5 Tobacco/Smoking Status: Tobacco use Status Tobacco use date assessed 04/30/24 04/30/24 10:41 Patient Tobacco Use Status Never used Tobacco 04/30/24 10:41 e-Cigarette/Vaping Use Never Used 04/30/24 10:41 PHQ-9: PHQ-9 Score PHQ-9: Total score 0 04/30/24 10:41 Depression Screening Interpretation: Negative Thrive Assessment: Date of Thrive Assessment Date Thrive assessed 04/30/24 04/30/24 10:41 Currently or been in a relationship where the following occur: No concerns reported Const General: cooperative, comfortable, no acute distress and alert Neck Neck: Yes no lymphadenopathy Thyroid: Thyroid normal Resp Effort & Inspection: normal respiratory effort Auscultation: clear to auscultation bilaterally Percussion: percussion normal Cardio Jugular venous distension: no JVD Palpation: normal PMI Rate: regular rate Rhythm: regular rhythm Heart sounds: S1 normal heart sound present and S2 normal heart sound present GI Inspection: Yes normal to inspection Palpation (GI): No hepatosplenomegaly present Skin General skin exam: no rashes or lesions noted Extrem General: Yes no clubbing, cyanosis or edema Coding Level of Care Code Est Pt Level 3 (53892) Diagnoses Hypertension I10 Assessment & Plan Assessment & Plan (1) Hypertension: Code(s): I10 - Essential (primary) hypertension Category: Medical Plan: stable; same rx Orders: Orders Comprehensive [place]. Panel Fast Today Z13.9 - Encounter for screening, unspecified Thyroid Stimulating Hormone Today Z13.29 - Encounter for screening for other suspected endocrine disorder Lipid Panel Today Z13.220 - Encounter for screening for lipoid disorders Complete Blood Count Auto Diff Today Z13.0 - Encounter for screening for diseases of the blood and blood-forming organs and certain disorders involving the immune mechanism
== END 2024-04-30 10:50 | disposition home or self-care (01) ==
LOC: HO.HMCH 10:30
PROVIDERS: PCP Internal Medicine; Visit Provider Internal Medicine
DX: I10 Essential (primary) hypertension (principal)

== ENCOUNTER → 2024-04-30 10:29 | Outpatient (BNVA) | payer MEDICARE, SELFPAY | PROVIDERS: PCP Internal Medicine; Visit Provider Internal Medicine | DX: I10 Essential (primary) hypertension (principal) | CPT/HCPCS: 96127; 99212 ==

== ENCOUNTER 2024-05-09 10:11 | Outpatient (REF) | payer MEDICARE, SELFPAY ==
--- NOTE | ~2024-05-09 | MM_ITS ---
EXAMINATION: BONE DENSITOMETRY CLINICAL INDICATION: Other specified disorders of bone density and structure. COMPARISON: Previous BD dated 05/06/2022 and baseline BD dated 12/04/2007. TECHNIQUE: Using a Melophone DXA System (software version: 13.1) manufactured by [employer], dual-energy x-ray absorptiometry was performed of the lumbar spine and left hip. The images are of good technical quality. Summary results are attached. FINDINGS: LEFT FEMUR, NECK: Current: BMD 0.771 g/cm2, Z-score -0.2, T-score -1.9, osteopenia. Prior: BMD 0.749 g/cm2. Baseline: BMD 0.745 g/cm2. LEFT FEMUR, TOTAL: Current: BMD 0.816 g/cm2, Z-score 0.0, T-score -1.5, osteopenia, 0.4% increase from previous, 0.1% decrease from baseline (<5% change is not significant). Prior: BMD 0.813 g/cm2. Baseline: BMD 0.817 g/cm2. AP SPINE L1-L4: Current: BMD 1.078 g/cm2, Z-score 0.8, T-score -0.8, normal, 7.8% increase from previous, 17.8% increase from baseline (<5% change is not significant). Prior: BMD 1.000 g/cm2. Baseline: BMD 0.915 g/cm2. IDENTIFIED RISK FACTORS: Bilateral oophorectomy, early menopause, family history (parent hip fracture), hysterectomy, secondary osteoporosis, thiazide. HISTORY OF FRACTURE: None listed. MEDICATIONS: Vitamin D, ERT/SERMS. MM/XR DEXA axial skeleton IMPRESSION: 1. DIAGNOSIS: Osteopenia based on the lowest T-score value of -1.9 in the femoral neck applying World Health Organization criteria. 2. 10-YEAR FRACTURE RISK PREDICTION, FRAX: Not performed in this patient on estrogen or bone building treatments. 3. Treatment Recommendations: NOF guidelines recommend consideration for treatment in postmenopausal women and men age 50 and older presenting with the following: -A hip or vertebral (clinical or morphometric) fracture. -T-score less than or equal to -2.5 at the femoral neck or spine after appropriate evaluation to exclude secondary causes. -Low bone mass at the hip or spine and a 10-year fracture probability by FRAX of greater than or equal to 3% for hip fracture or greater than or equal to 20% for major osteoporotic fracture based on the [place] adapted WHO algorithm. 4. Other Recommendations: All treatment decisions require clinical judgment and consideration of individual patient factors, including patient preferences, comorbidities, previous drug use, risk factors not captured in the FRAX model (e.g. frailty, falls, vitamin D deficiency, increased bone turnover, interval significant decline in bone density) and possible under or overestimation of fracture risk by FRAX. Additional medical evaluation for secondary cause of low bone mineral density may be appropriate. FUTURE SCAN RECOMMENDATION: People with diagnosed cases of osteoporosis or at high risk for fracture should have regular bone mineral density tests. For patients eligible for Medicare, routine testing is allowed once every 2 years. The testing frequency can be increased to one year for patients who have rapidly progressing disease, those who are receiving or discontinuing medical therapy to restore bone mass, or have additional risk factors. Electronically signed by: Osman Brito MD 05/11/2024 07:31 AM ARSEN REYNOLDS
== END 2024-05-09 10:12 | disposition home or self-care (01) ==
LOC: HO.MAMMO 10:11
PROVIDERS: PCP Internal Medicine; Visit Provider Internal Medicine Medical Oncology
DX: M85.80 Other specified disorders of bone density and structure, unspecified site (principal)
CPT/HCPCS: 77080

== ENCOUNTER 2024-05-22 11:31 | Outpatient (AMB) | payer MEDICARE, SELFPAY ==
--- NOTE | 2024-05-22 11:36 | A.OFFPC_ITS ---
Vital Signs 05/22/24 11:37 Height 5 ft 5.5 in Weight 148 lb BMI 24.3 BP 150/80 H Blood Pressure Location Lt brachial Position Sitting Intake Visit Reasons: heart palpitations Intake Note: Patient is here to follow up on heart palpitations. Television Parts Tester Required: No Investor Relations Associate: Not Required per policy Accompanied by: Self / Same As Patient Allergies cefazolin [From Kefzol] Allergy (Severe, Verified 05/22/24 11:37) Rash clindamycin [CLINDAMYCIN] Allergy (Severe, Verified 05/22/24 11:37) RASH adhesive tape Allergy (Intermediate, Verified 05/22/24 11:37) REDNESS.BLISTERS cephalexin [Keflex] Allergy (Intermediate, Verified 05/22/24 11:37) Rash meperidine [Demerol] Allergy (Unknown, Verified 05/22/24 11:37) Unknown nitrofurantoin [Macrobid] Allergy (Unknown, Verified 05/22/24 11:37) Unknown Tobacco use date assessed: 05/22/24 Fall risk assessment: No Falls in past year Last assessed Fall Risk: 05/22/24 Dental Screening Dental Screen Date: 04/30/24 HPI heart palpitations HPI Details an episode of palpitations 3 days ago; no chest pain or dizziness PFSH Medical History (Updated 05/22/24 @ 11:49 by Neo Hernandez MD) Intermittent palpitations Breast cancer Diverticulosis GERD (gastroesophageal reflux disease) Hyperlipidemia Hypertension Surgical History History of bilateral cataract extraction History of esophagogastroduodenoscopy (EGD) Hx of colonoscopy History of prolapse of bladder History of mastectomy History of total abdominal hysterectomy and bilateral salpingo-oophorectomy History of D&C Family History Father No problems noted. Mother Uterine cancer CVD (cardiovascular disease) Diabetes Maternal Aunt Ovarian cancer Sister No problems noted. Brother No problems noted. Brother No problems noted. Brother No problems noted. Son No problems noted. Social History Household Members: Spouse Housing: House Are you a primary plant care worker to a significant other at home: No Do you presently have visiting nurse or other home services: No Alcohol intake: current Alcohol intake frequency: a few times a week Patient Tobacco Use Status: Never used Tobacco e-Cigarette/Vaping Use: Never Used Second Hand Smoke Exposure: No service: No Current occupational status: retired Cognitive needs: No Hearing needs: No Vision needs: Yes Questionnaire Thrive Questionnaire Date Thrive assessed: 04/30/24 AYLA-7 AMB Questionnaire AYLA-7 Date AYLA - 7 assessed: 04/30/24 Source: Developed by Drs. Mynor Priest, Malu Jones, Trev Luna and colleagues, with an educational vicky from [employer]. Review of Systems Const Denies chills, Denies headache(s) and Denies weight loss ENT Denies headache(s) Card Denies chest pain, Denies syncope and Denies dyspnea Resp Denies chest congestion, Denies cough and Denies dyspnea GI Denies abdominal pain, Denies change in stool character, Denies nausea and Denies vomiting Musc Denies deformity and Denies joint swelling Neuro Denies syncope and Denies headache(s) Physical exam (Primary Care) Vital Signs: Last Vital Signs BP 150/80 H 05/22/24 11:37 BMI result Body Mass Index 24.3 Tobacco/Smoking Status: Tobacco use Status Tobacco use date assessed 05/22/24 05/22/24 11:41 Patient Tobacco Use Status Never used Tobacco 05/22/24 11:41 e-Cigarette/Vaping Use Never Used 05/22/24 11:41 Thrive Assessment: Date of Thrive Assessment Date Thrive assessed 04/30/24 05/22/24 11:41 Const General: cooperative, comfortable, no acute distress and alert Neck Neck: Yes no lymphadenopathy Thyroid: Thyroid normal Resp Effort & Inspection: normal respiratory effort Auscultation: clear to auscultation bilaterally Percussion: percussion normal Cardio Jugular venous distension: no JVD Palpation: normal PMI Rate: regular rate Rhythm: regular rhythm Heart sounds: S1 normal heart sound present and S2 normal heart sound present GI Inspection: Yes normal to inspection Palpation (GI): No hepatosplenomegaly present Skin General skin exam: no rashes or lesions noted Extrem General: Yes no clubbing, cyanosis or edema Coding Level of Care Code Est Pt Level 3 (30542) Diagnoses Irregular heart beat I49.9 Assessment & Plan Assessment & Plan (1) Irregular heart beat: Code(s): I49.9 - Cardiac arrhythmia, unspecified Plan: EKG ordered Orders: Orders ECG 12 lead EKG Today R00.2 - Palpitations
[2024-05-22 11:37] VITALS: BP 150/80; BMI 24.3
== END 2024-05-22 11:54 | disposition home or self-care (01) ==
PROVIDERS: PCP Internal Medicine; Visit Provider Internal Medicine
DX: I49.9 Cardiac arrhythmia, unspecified (principal)

== ENCOUNTER → 2024-05-22 11:31 | Outpatient (REF) | payer MEDICARE, SELFPAY ==
--- NOTE | 2024-05-22 12:05 | ECG_ITS ---
Test Reason : r00.2 Blood Pressure : / mmHG Vent. Rate : 089 BPM Atrial Rate : 089 BPM P-R Int : 128 ms QRS Dur : 076 ms QT Int : 396 ms P-R-T Axes : 067 031 060 degrees QTc Int : 481 ms Normal sinus rhythm Possible Left atrial enlargement Nonspecific ST abnormality Abnormal ECG When compared with ECG of 14-SEP-2017 07:09, anterolateral ST depression more prominent Referred By: Neo Hernandez Electronically Signed By:REJI CROWELL
== END ==
LOC: HO.CARD 11:31
PROVIDERS: PCP Internal Medicine; Visit Provider Internal Medicine
DX: R00.2 Palpitations (principal); I49.9 Cardiac arrhythmia, unspecified
CPT/HCPCS: 93005; 99212

== ENCOUNTER → 2024-05-22 12:05 | Outpatient (BNV) | payer MEDICARE, SELFPAY | PROVIDERS: PCP Internal Medicine; Visit Provider Internal Medicine | DX: R00.2 Palpitations (principal); R94.31 Abnormal electrocardiogram [ECG] [EKG] | CPT/HCPCS: 93010 ==

== ENCOUNTER 2024-08-21 07:01 | Outpatient (REF) | payer MEDICARE, SELFPAY ==
[2024-08-21 07:12] LABS: MANUAL DIFF FLAG NO
[2024-08-21 07:30] LABS: Basophils Percent Auto 0.7 % (0-2); Eosinophils Absolute Auto 0.1 X10*3/uL (0.0-0.4); Hematocrit 40.6 % (37.0-47.0); Hemoglobin 13.9 g/dl (12.0-16.0); Imm Gran Abs Auto 0.01 X10*3/uL (0.00-0.03); Imm Gran Pct Auto 0.2 % (0.0-0.4); Lymphocytes Absolute Auto 1.2 X10*3/uL (1.2-4.9); Lymphocytes Percent Auto 26.3 % (20-40); Mean Corpuscular HGB Conc 34.2 g/dl (31.0-35.0); Mean Corpuscular Hemoglobin 31.6 pg (27.0-33.0); Mean Corpuscular Volume 92.3 fL (80.0-98.0); Mean Platelet Volume 10.3 fL (9.4-12.3); Monocytes Absolute Auto 0.5 X10*3/uL (0.1-1.2); Monocytes Percent Auto 10.2 % (2-11); Neutrophils Absolute Auto 2.7 x10*3/uL (2.0-8.3); Neutrophils Percent Auto 60.6 % (45-73); Platelet Count 234 X10*3/uL (160-400); Red Cell Distribution Width 12.4 % (11.0-16.0); White Blood Count 4.5 X10*3/uL (4.8-10.8)
[2024-08-21 08:43] LABS: Alanine Aminotransferase 13 U/L (0-31); Albumin Level 4.2 g/dL (3.5-5.0); Alkaline Phosphatase 53 U/L (39-117); Anion Gap 13 (12-20); Aspartate Amino Transferase 21 U/L (5-31); Bilirubin Total 0.6 mg/dL (0.0-1.0); Blood Urea Nitrogen 16 mg/dL (9-16); Calcium 9.7 mg/dL (8.4-10.2); Carbon Dioxide 26 mmol/L (22-29); Chloride 107 mmol/L (96-108); Cholesterol 188 mg/dL (<200); Estimated Glomerular Filt Rate > 60; Glucose Fasting 95 mg/dL (60-99); HDL Cholesterol 78 mg/dL (>40); LDL Cholesterol Calculated 100 mg/dL (<100); Potassium 3.6 mmol/L (3.3-5.1); Sodium 142 mmol/L (135-145); Total Protein 7.4 g/dL (6.5-8.0); Triglycerides 54 mg/dL (<150)
[2024-08-21 08:59] LABS: Thyroid Stimulating Hormone 2.65 uIU/mL (0.32-4.0)
== END 2024-08-21 07:02 | disposition home or self-care (01) ==
LOC: HO.LAB 07:01
PROVIDERS: PCP Internal Medicine; Visit Provider Internal Medicine
DX: Z13.9 Encounter for screening, unspecified (principal); Z13.0 Encounter for screening for diseases of the blood and blood-forming organs and certain disorders involving the immune mechanism; Z13.29 Encounter for screening for other suspected endocrine disorder; Z13.220 Encounter for screening for lipoid disorders
CPT/HCPCS: 36415; 80053; 80061; 84443; 85025

== ENCOUNTER 2024-08-29 10:27 | Outpatient (AMB) | payer MEDICARE, SELFPAY ==
--- NOTE | 2024-08-29 10:34 | A.OFFPC_ITS ---
Vital Signs 08/29/24 10:36 Height 5 ft 5.5 in Weight 146 lb 8 oz BMI 24.0 BP 120/68 Blood Pressure Location Lt brachial Position Sitting Pulse 87 Pulse Source Pulse Oximeter Temp 97.3 F Temp Source Temporal Artery Scan Pulse Oximetry (%) 99 Oxygen Delivery Method Room Air Intake Visit Reasons: Follow Up Intake Note: Patient is here to follow up on HTN, HLD. Purchase Price Analyst Required: No Society Editor: Not Required per policy Accompanied by: Self / Same As Patient Allergies cefazolin [From Kefzol] Allergy (Severe, Verified 08/29/24 10:36) Rash clindamycin [CLINDAMYCIN] Allergy (Severe, Verified 08/29/24 10:36) RASH adhesive tape Allergy (Intermediate, Verified 08/29/24 10:36) REDNESS.BLISTERS cephalexin [Keflex] Allergy (Intermediate, Verified 08/29/24 10:36) Rash meperidine [Demerol] Allergy (Unknown, Verified 08/29/24 10:36) Unknown nitrofurantoin [Macrobid] Allergy (Unknown, Verified 08/29/24 10:36) Unknown Medication List - Last Reconciled 08/29/24 by Neo Hernandez MD atorvastatin 40 mg PO DAILY bisacodyl (Dulcolax (bisacodyl)) 20 mg (4 x 5 mg) PO ONCE 1 day hydrochlorothiazide 25 mg PO DAILY methylcellulose (laxative) (Citrucel) 500 mg PO BID 90 days omeprazole 20 mg PO DAILY polyethylene glycol 3350 (Miralax) 238 grams PO ONCE PRN 1 day raloxifene (Evista) 60 mg PO DAILY Tobacco use date assessed: 08/29/24 Fall risk assessment: No Falls in past year Last assessed Fall Risk: 08/29/24 Dental Screening Dental Screen Date: 08/29/24 Did you have a dental visit in the last 12 months?: Yes Did you have a dental problem in the last 6 months where you did not have access to dental care?: No Was dental information given to patient?: Patient has dentist HPI Follow Up HPI Details hyperlipidemia and hypertension on rx; doing wel and compliant with regimen PFSH Medical History (Updated 05/22/24 @ 11:49 by Neo Hernandez MD) Intermittent palpitations Breast cancer Diverticulosis GERD (gastroesophageal reflux disease) Hyperlipidemia Hypertension Surgical History History of bilateral cataract extraction History of esophagogastroduodenoscopy (EGD) Hx of colonoscopy History of prolapse of bladder History of mastectomy History of total abdominal hysterectomy and bilateral salpingo-oophorectomy History of D&C Family History Father No problems noted. Mother Uterine cancer CVD (cardiovascular disease) Diabetes Maternal Aunt Ovarian cancer Sister No problems noted. Brother No problems noted. Brother No problems noted. Brother No problems noted. Son No problems noted. Social History Household Members: Spouse Housing: House Are you a primary point of care technician to a significant other at home: No Do you presently have visiting nurse or other home services: No Alcohol intake: current Alcohol intake frequency: a few times a week Patient Tobacco Use Status: Never used Tobacco e-Cigarette/Vaping Use: Never Used Second Hand Smoke Exposure: No service: No Current occupational status: retired Cognitive needs: No Hearing needs: No Vision needs: Yes Questionnaire PHQ-9 Over the last 2 weeks, how often have you been bothered by any of the following problems? 1. Little interest or pleasure in doing things: not at all 2. Feeling down, depressed, or hopeless: not at all 3. Trouble falling or staying asleep, or sleeping too much: not at all 4. Feeling tired or having little energy: not at all 5. Poor appetite or overeating: not at all 6. Feeling bad about yourself - or that you are a failure or have let yourself or your family down: not at all 7. Trouble concentrating on things, such as reading the newspaper or watching television: not at all 8. Moving or speaking so slowly that other people could have noticed. Or the opposite - being so fidgety or restless that you have been moving around a lot more than usual: not at all 9. Thoughts that you would be better off or of hurting yourself in some way: not at all Total score: 0 Depression Screening Interpretation: Negative Depression Screening Done: Yes Source: Developed by Drs. Mynor L. ZaydaMalu madrigal Kurt Kroenke and colleagues, with an educational vicky from [employer]. Thrive Questionnaire Date Thrive assessed: 08/29/24 I am a: Patient What is your living situation today?: I have a steady place to live Within the past 12 months, did the food you bought not last and you didn't have the money to get more?: Never true Within the past 12 months, did you worry whether your food would run out before you got money to buy more?: Never true Do you have trouble paying for medicines?: No Do you have trouble getting transportation to medical appointments?: No Do you have trouble paying your heating and electricity bill?: No Do you have trouble taking care of your child, family member or friend?: No Do you have trouble with day-to-day activities such as bathing, preparing meals, shopping, managing finances, etc.?: No Are you currently unemployed and looking for a job?: No Are you interested in more education?: No Please select the resources that you would like help with: None Currently or been in a relationship where the following occur: No concerns reported THRIVE Score: 0 AUDIT C Alcohol Use Questionnaire (AUDIT-C) 1. How often do you have a drink containing alcohol?: Never 2. How many drinks containing alcohol do you have on a typical day when you are drinking?: 1 or 2 3. How often do you have six or more drinks on one occasion?: Never Total Score: 0 AYLA-7 AMB Questionnaire AYLA-7 Date AYLA - 7 assessed: 08/29/24 Feeling nervous, anxious, or on edge: 0 = Not at all Not being able to stop or control worryin = Not at all Worrying too much about different things: 0 = Not at all Trouble relaxin = Not at all Being so restless that it is hard to sit still: 0 = Not at all Becoming easily annoyed or irritable: 0 = Not at all Feeling afraid as if something awful might happen: 0 = Not at all Total AYLA-7 score (0-4 normal; 5-9 mild; 10-14 moderate; 15-21 severe): 0 Source: Developed by Malu Russo Kurt Kroenke and colleagues, with an educational vicky from [employer]. Review of Systems Const Denies chills, Denies headache(s) and Denies weight loss ENT Denies headache(s) Card Denies chest pain, Denies syncope, Denies irregular heart rhythm and Denies dyspnea Resp Denies chest congestion, Denies cough and Denies dyspnea GI Denies abdominal pain, Denies change in stool character, Denies nausea and Denies vomiting Musc Denies deformity and Denies joint swelling Neuro Denies syncope and Denies headache(s) Physical exam (Primary Care) Vital Signs: Last Vital Signs Temp 97.3 F 08/29/24 10:36 Pulse 87 08/29/24 10:36 BP 120/68 08/29/24 10:36 Pulse Ox 99 08/29/24 10:36 Oxygen Delivery Method Room Air 08/29/24 10:36 BMI result Body Mass Index 24.0 Tobacco/Smoking Status: Tobacco use Status Tobacco use date assessed 08/29/24 08/29/24 10:40 Patient Tobacco Use Status Never used Tobacco 08/29/24 10:40 e-Cigarette/Vaping Use Never Used 08/29/24 10:40 PHQ-9: PHQ-9 Score PHQ-9: Total score 0 08/29/24 10:40 Depression Screening Interpretation: Negative Thrive Assessment: Date of Thrive Assessment Date Thrive assessed 08/29/24 08/29/24 10:40 Currently or been in a relationship where the following occur: No concerns reported Const General: cooperative, comfortable, no acute distress and alert Neck Neck: Yes no lymphadenopathy Thyroid: Thyroid normal Resp Effort & Inspection: normal respiratory effort Auscultation: clear to auscultation bilaterally Percussion: percussion normal Cardio Jugular venous distension: no JVD Palpation: normal PMI Rate: regular rate Rhythm: regular rhythm Heart sounds: S1 normal heart sound present and S2 normal heart sound present GI Inspection: Yes normal to inspection Palpation (GI): No hepatosplenomegaly present Skin General skin exam: no rashes or lesions noted Extrem General: Yes no clubbing, cyanosis or edema Coding Level of Care Code Est Pt Level 3 (34466) Diagnoses Hyperlipidemia E78.5 Assessment & Plan Assessment & Plan (1) Hyperlipidemia: Code(s): E78.5 - Hyperlipidemia, unspecified Category: Medical Plan: stable; same rx Orders: Referrals Cardiology Referral R00.2 - Palpitations
[2024-08-29 10:36] VITALS: BP 120/68; PULSE 87; TEMP 36.3; O2SAT 99; BMI 24.0
== END 2024-08-29 10:57 | disposition home or self-care (01) ==
PROVIDERS: PCP Internal Medicine; Visit Provider Internal Medicine
DX: E78.5 Hyperlipidemia, unspecified (principal)

== ENCOUNTER → 2024-08-29 10:27 | Outpatient (BNVA) | payer MEDICARE, SELFPAY | PROVIDERS: PCP Internal Medicine; Visit Provider Internal Medicine | DX: E78.5 Hyperlipidemia, unspecified (principal) | CPT/HCPCS: 99212 ==

== ENCOUNTER 2024-09-07 10:50 | Day surgery (SDC) | payer MEDICARE, SELFPAY ==
--- NOTE | 2024-09-06 09:19 | HO.ANESPROP2 ---
HPI - Anesthesia Eval Consult details Narrative: 74yo F for Colonoscopy [facility] Active Problems Active Problems: All Active Problems Intermittent palpitations (Acute) Preop exam for internal medicine (Acute) Breast cancer (Acute) Pulmonary nodule (Acute) Physical exam (Acute) Combined abdominal and pelvic pain (Acute) Diverticulosis large intestine w/o perforation or abscess w/o bleeding (Acute) Acid reflux (Acute) Abdominal pain (Acute) Tubular adenoma (Acute) Hemorrhoids (Acute) Chronic constipation (Acute) Diverticulosis (Acute) Hyperlipidemia (Acute) Hypertension (Acute) Past Medical History Medical History (Updated 05/22/24 @ 11:49 by Neo Hernandez MD) Intermittent palpitations Breast cancer Diverticulosis GERD (gastroesophageal reflux disease) Hyperlipidemia Hypertension Family History Family History Father No problems noted. Mother Uterine cancer CVD (cardiovascular disease) Diabetes Maternal Aunt Ovarian cancer Sister No problems noted. Brother No problems noted. Brother No problems noted. Brother No problems noted. Son No problems noted. Family history of problems with anesthesia: No Surgical History Surgical History History of bilateral cataract extraction History of esophagogastroduodenoscopy (EGD) Hx of colonoscopy History of prolapse of bladder History of mastectomy History of total abdominal hysterectomy and bilateral salpingo-oophorectomy History of D&C History of Problems with Anesthesia: No Social History Social History Household Members: Spouse Housing: House Are you a primary childcare center administrator to a significant other at home: No Do you presently have visiting nurse or other home services: No Alcohol intake: current Alcohol intake frequency: a few times a week Patient Tobacco Use Status: Never used Tobacco e-Cigarette/Vaping Use: Never Used Second Hand Smoke Exposure: No service: No Current occupational status: retired Cognitive needs: No Hearing needs: No Vision needs: Yes Meds Allergies Allergy/AdvReac Type Severity Reaction Status Date / Time cefazolin [From Kefzol] Allergy Severe Rash Verified 08/29/24 10:36 clindamycin [CLINDAMYCIN] Allergy Severe RASH Verified 08/29/24 10:36 adhesive tape Allergy Intermediate REDNESS.BLI Verified 08/29/24 10:36 STERS cephalexin [Keflex] Allergy Intermediate Rash Verified 08/29/24 10:36 meperidine [Demerol] Allergy Unknown Unknown Verified 08/29/24 10:36 nitrofurantoin [Macrobid] Allergy Unknown Unknown Verified 08/29/24 10:36 Assessment and Plan Assessment Anesthesia Assessment: Chart Reviewed Final Anesthetic Review Family History of Problems with Anesthesia: No History of Problems with Anesthesia: No
[2024-09-07] MEDS: Lactated Ringers 1,000 ML 100 ML IVCONT (11:16)
[2024-09-07 11:25] VITALS: BP 121/70; PULSE 92; RESP 18; TEMP 36.6; O2SAT 98
[2024-09-07 11:32] VITALS: BMI 24.6
--- NOTE | 2024-09-07 11:48 | MHC.SHP ---
Pre-Procedural Eval Section A - 24 Hr Update-Section A only Date of Service: 09/07/24 The patient is an INPATIENT: No The patient has been examined within 24 hours of the surgical procedure. The History & Physical has been completed within 30 days and I have reviewed it.: No Section B - Complete if H&P > 30 days Chief Complaint: hx of colonic polyps Details of Present Illness: Recent episode of diverticulitis, GERD, dysphagia Relevant Family History (Specify if Yes): Yes Relevant Social History: None Present Medications: see Short Stay Collaborative assessment Medical History: Significant History (Hyperlipidemia Hypertension) History of Previous Operations: Relevant previous surgery/procedure and date(s) (History of D&C History of mastectomy History of prolapse of bladder History of total abdominal hysterectomy and bilateral salpingo-oophorectomy Hx of colonoscopy) Allergies: Allergies Allergy/AdvReac Type Severity Reaction Status Date / Time cefazolin [From Kefzol] Allergy Severe Rash Verified 09/07/24 11:34 clindamycin [CLINDAMYCIN] Allergy Severe RASH Verified 09/07/24 11:34 adhesive tape Allergy Intermediate REDNESS.BLI Verified 09/07/24 11:34 STERS cephalexin [Keflex] Allergy Intermediate Rash Verified 09/07/24 11:34 meperidine [Demerol] Allergy Intermediate Vomiting Verified 09/07/24 11:34 nitrofurantoin [Macrobid] Allergy Intermediate Rash Verified 09/07/24 11:34 Review of Systems Sugical H&P ROS: Negative: Constitution, Cardiovascular and Respiratory and Yes, Specify: Gastrointestinal (GERD, dysphagia) Exam Surgical H&P Exam: Normal: Heart, Normal: Lungs, Normal: Extremities and Normal: Abdomen Plan Diagnosis/Plan: Unchanged I have reviewed the history and physical and performed a pertinent physical examination on my patient. No changes have occurred unless specified. Time Spent With Patient Time: Total time managing care of this patient today ____ minutes.
--- NOTE | 2024-09-07 13:20 | P.OPN-COLO_ITS ---
Colonoscopy Operative Note Operative Note Date of Service: 09/07/24 Narrative: COLONOSCOPY TILL CECUM WITH BIOPSIES Pre-op diagnosis: Surveillance for colon polyps. Post-op diagnosis:? Colon polyp, Diverticulosis, hemorrhoids Endoscopist:? Eileen Bowen MD Anesthesia:?MAC Consent: Indications for the procedure and potential complications of bleeding, perforation, reaction to medications and missed diagnosis were discussed with the patient and informed consent was obtained. Instrument: Olympus PCF H 190 L variable stiffness pediatric colonoscope Monitoring: Vital signs and clinical assessment, intermittent blood pressure monitoring, continuous EKG monitoring, Pulse oximetry and Carbon Dioxide monitoring were done throughout the procedure. Please see anesthesia flowsheet. Colon withdrawl time was 18 minutes. Procedure: The patient was placed in the left lateral decubitis position and pre-procedure medications were administered. After a digital rectal examination of the ano-rectum, the video colonoscope was inserted into the rectum and advanced through the colon to the cecum. The colonoscope was slowly withdrawn in a retrograde panoramic fashion and the colon mucosa was carefully examined including a retroflexed view of the rectum. Findings and interventions are described below. Procedure Difficulty: without difficulty Findings: Terminal Ileum: Not evaluated Cecum: Normal Ascending Colon: Moderate diverticulosis throughout the entire colon Transverse Colon: Moderate diverticulosis throughout the entire colon Descending Colon: Moderate diverticulosis throughout the entire colon Sigmoid Colon: Moderate diverticulosis Rectum: A few 2-4 mm diminutive appearing polyps - one polyp was removed with a cold biopsy Ano-rectum: Moderate internal hemorrhoids Colon preparation: Good after copious irrigation. Mcintyre Bowel Preparation Scale Right colon; 2 Transverse colon: 2 Left colon; 2 (0 = Unprepared colon segment with mucosa not seen due to solid stool that cannot be cleared. 1 = Portion of mucosa of the colon segment seen, but other areas of the colon segment not well seen due to staining, residual stool and/or opaque liquid. 2 = Minor amount of residual staining, small fragments of stool and/or opaque liquid, but mucosa of colon segment seen well. 3 = Entire mucosa of colon segment seen well with no residual staining, small fragments of stool or opaque liquid) Impression and Post Procedure Diagnosis: Colonoscopy Findings: One small polyp was removed Moderate diverticulosis seen in the entire colon Moderate hemorrhoids on retroflexed exam. Plan: Pt has a FU appointment on 09/20/[address] Bowen Repeat Colonoscopy in 5 years if polyps are adenomatous and due to a history of adenomatous colon polyps (if pt remaind in stable health) Above findings were reviewed with the patient and relevant handouts were given and the discharge area. BIOPSIES SHOWED: Colon, rectal polyp: Hyperplastic polyp. Letter sent to the patient advising repeat colonoscopy in 5 years. Patient placed on the colonoscopy recall list.
[2024-09-07 13:24] VITALS: BP 143/67; PULSE 62; RESP 18; TEMP 36.1; O2SAT 94
[2024-09-07 13:35] VITALS: BP 156/78; PULSE 66; RESP 18; O2SAT 99
== END 2024-09-07 13:56 | disposition home or self-care (01) ==
PROVIDERS: PCP Internal Medicine; Visit Provider Internal Medicine Gastroenterology
PROC: 0DJD8ZZ Inspection of Lower Intestinal Tract, Via Natural or Artificial Opening Endoscopic (ICD-10-PCS; CPT 45378; principal; 2024-09-07 12:30)
DX: Z12.11 Encounter for screening for malignant neoplasm of colon (principal); Z86.0101 Personal history of adenomatous and serrated colon polyps; K62.1 Rectal polyp; K57.30 Diverticulosis of large intestine without perforation or abscess without bleeding; K64.8 Other hemorrhoids; Z87.19 Personal history of other diseases of the digestive system; R13.10 Dysphagia, unspecified; K21.9 Gastro-esophageal reflux disease without esophagitis; I10 Essential (primary) hypertension; E78.5 Hyperlipidemia, unspecified; R00.2 Palpitations; Z85.3 Personal history of malignant neoplasm of breast; Z90.11 Acquired absence of right breast and nipple; Z90.710 Acquired absence of both cervix and uterus; Z79.899 Other long term (current) drug therapy; Z88.1 Allergy status to other antibiotic agents; Z88.5 Allergy status to narcotic agent; L23.1 Allergic contact dermatitis due to adhesives; Z98.890 Other specified postprocedural states
CPT/HCPCS: 45380; 88305; J2003; J2704

== ENCOUNTER → 2024-09-07 10:50 | Outpatient (BNV) | payer MEDICARE, SELFPAY | PROVIDERS: PCP Internal Medicine; Visit Provider Internal Medicine Gastroenterology | DX: Z12.11 Encounter for screening for malignant neoplasm of colon (principal); Z86.0100 Personal history of colon polyps, unspecified; K63.5 Polyp of colon; K57.90 Diverticulosis of intestine, part unspecified, without perforation or abscess without bleeding | CPT/HCPCS: 45380 ==

== ENCOUNTER 2024-09-17 13:48 | Outpatient (AMB) | payer MEDICARE, SELFPAY ==
--- NOTE | 2024-09-17 14:04 | MHC.OFFVIS ---
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 Allergies cefazolin [From Kefzol] Allergy (Severe, Verified 09/07/24 11:34) Rash clindamycin [CLINDAMYCIN] Allergy (Severe, Verified 09/07/24 11:34) RASH adhesive tape Allergy (Intermediate, Verified 09/07/24 11:34) REDNESS.BLISTERS cephalexin [Keflex] Allergy (Intermediate, Verified 09/07/24 11:34) Rash meperidine [Demerol] Allergy (Intermediate, Verified 09/07/24 11:34) Vomiting nitrofurantoin [Macrobid] Allergy (Intermediate, Verified 09/07/24 11:34) Rash Medication List - Last Reconciled 09/17/24 by Richi Steele MD atorvastatin 40 mg PO DAILY hydrochlorothiazide 25 mg PO DAILY methylcellulose (laxative) (Citrucel) 500 mg PO BID 90 days omeprazole 20 mg PO DAILY raloxifene (Evista) 60 mg PO DAILY HPI Comments Details: Angie is here for consultation regarding palpitations. She states that about 2-3 months ago she was having some palpitations. She has had 2 episodes that she can recall. They are random in occurrence and lasted for about an hour or so. However, she reported that to the PCP who referred her to Cardiology. She denies any history of coronary disease or myocardial infarction or cardiomyopathy. Apparently told to have had mitral regurgitation based on a prior echocardiogram. Otherwise, history of breast cancer but stable from that end. On meds for hypertension, dyslipidemia. [facility] Medical History (Updated 09/17/24 @ 14:26 by Richi Steele MD) Intermittent palpitations Breast cancer Diverticulosis GERD (gastroesophageal reflux disease) Hyperlipidemia Hypertension Surgical History History of bilateral cataract extraction History of esophagogastroduodenoscopy (EGD) Hx of colonoscopy History of prolapse of bladder History of mastectomy History of total abdominal hysterectomy and bilateral salpingo-oophorectomy History of D&C Family History Father No problems noted. Mother Uterine cancer CVD (cardiovascular disease) Diabetes Maternal Aunt Ovarian cancer Sister No problems noted. Brother No problems noted. Brother No problems noted. Brother No problems noted. Son No problems noted. Social History Household Members: Spouse Housing: House Are you a primary career discovery teacher to a significant other at home: No Do you presently have visiting nurse or other home services: No Alcohol intake: current Alcohol intake frequency: a few times a week Patient Tobacco Use Status: Never used Tobacco e-Cigarette/Vaping Use: Never Used Second Hand Smoke Exposure: No service: No Current occupational status: retired Cognitive needs: No Hearing needs: No Vision needs: Yes Review of Systems Const Denies weakness ENT Denies dizziness Card Denies chest pain, Denies chest pain with activity, Denies syncope, Denies rapid heart rate, Denies pedal edema, Denies edema, Denies leg edema, Denies lightheadedness, Denies palpitations, Denies dyspnea, Denies dyspnea on exertion and Denies orthopnea Resp Denies cough, Denies dyspnea and Denies dyspnea on exertion GI Denies hematochezia and Denies change in stool character Musc Denies abnormal gait, Denies muscle cramps, Denies muscle weakness, Denies numbness, Denies radiating pain into limb and Denies tingling Neuro Denies abnormal gait, Denies dizziness, Denies syncope, Denies numbness, Denies tingling and Denies weakness Endo Denies palpitations Physical Exam Vital Signs: Last Vital Signs Pulse 70 09/17/24 14:05 BP 128/78 09/17/24 14:05 BMI result Body Mass Index 23.5 Const General: comfortable and no acute distress Orientation/consciousness: patient oriented x3 HEENT Other: Unremarkable Head: Yes normal to inspection Neck Neck: Yes normal visual inspection Chest Chest palpation & inspection: normal inspection of the chest Resp Auscultation: clear to auscultation bilaterally Cardio Palpation: normal PMI Heart sounds: S1 normal heart sound present, S2 normal heart sound present, no gallops, no murmurs and no rubs GI Palpation (GI): Soft to palpation Back/Spine/Pelvis Other: unremarkable Skin General skin exam: no rashes or lesions noted Neuro General: patient oriented x3 Extrem General: Yes normal to inspection Psych Mental Status: mental status grossly normal Assessment & Plan Assessment & Plan (1) Intermittent palpitations: Code(s): R00.2 - Palpitations Category: Medical (2) Non-rheumatic mitral regurgitation: Code(s): I34.0 - Nonrheumatic mitral (valve) insufficiency Category: Medical Plan EKG with underlying sinus rhythm at 89/Min; mild ST depression in the precordial leads. More prominent than the last EKG from 2018 but similar to the one prior to that. Echocardiogram with LVEF of 55-60%. Mild mitral regurgitation. Exercise stress test from 2018-7 METS exercise capacity. No EKG evidence of ischemia. Normal myocardial perfusion. Overall, recent palpitations of uncertain etiology. Could be supraventricular or ventricular ectopy. Could be atrial flutter versus fibrillation. Less likely sustained ventricular arrhythmias. We will get a 14 day Holter monitor for further evaluation. We will repeat her echocardiogram for LVEF/any structural findings and to reassess mitral regurgitation. Follow-up after the above. If any interim concerns or acute issues, she will contact us or seek emergency care. We discussed about it. Orders: Orders CA echo transthoracic complete Today I34.0 - Nonrheumatic mitral (valve) insufficiency ECG 14 day holter monitor Today R00.2 - Palpitations Coding Level of Care Code New Pt Level 4 (55239) Complex EM visit Add On G2211 Diagnoses Intermittent palpitations R00.2 Non-rheumatic mitral regurgitation I34.0
[2024-09-17 14:05] VITALS: BP 128/78; PULSE 70; BMI 23.5
== END 2024-09-17 14:29 | disposition home or self-care (01) ==
PROVIDERS: PCP Internal Medicine; Visit Provider Internal Medicine
DX: R00.2 Palpitations (principal); I34.0 Nonrheumatic mitral (valve) insufficiency
CPT/HCPCS: 99214; G2211

== ENCOUNTER → 2024-09-17 13:48 | Outpatient (BNVA) | payer MEDICARE, SELFPAY | PROVIDERS: PCP Internal Medicine; Visit Provider Internal Medicine | DX: R00.2 Palpitations (principal); I34.0 Nonrheumatic mitral (valve) insufficiency; I10 Essential (primary) hypertension; E78.5 Hyperlipidemia, unspecified; Z79.899 Other long term (current) drug therapy | CPT/HCPCS: 99212 ==

== ENCOUNTER 2024-09-25 11:11 | Outpatient (AMB) | payer MEDICARE, SELFPAY ==
--- NOTE | 2024-09-25 11:14 | A.OFFVIS_ITS ---
Vital Signs 09/25/24 11:15 Height 5 ft 5 in Weight 144 lb BMI 24.0 BP 132/68 Blood Pressure Location Lt brachial Position Sitting Pulse 85 Pulse Oximetry (%) 100 Oxygen Delivery Method Room Air Intake Visit Reasons: colonoscopy results/ acid reflex Intake Note: Patient post op follow up for Colonoscopy results. Patient was seen by Alexandrea and leisa was 04/20/2023 for acid reflex. Denies any GI issues for today. 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 Accompanied by: Self / Same As Patient Allergies cefazolin (From Kefzol) Allergy (Severe, Verified 01/18/25 07:26) Rash clindamycin (CLINDAMYCIN) Allergy (Severe, Verified 01/18/25 07:26) RASH adhesive tape Allergy (Intermediate, Verified 01/18/25 07:26) REDNESS.BLISTERS cephalexin (Keflex) Allergy (Intermediate, Verified 01/18/25 07:26) Rash meperidine (Demerol) Allergy (Intermediate, Verified 01/18/25 07:26) Vomiting nitrofurantoin (Macrobid) Allergy (Intermediate, Verified 01/18/25 07:26) Rash Medication List - Last Reconciled 09/25/24 by Eileen Bowen MD atorvastatin 40 mg PO DAILY hydrochlorothiazide 25 mg PO DAILY methylcellulose (laxative) (Citrucel) 500 mg PO BID 90 days omeprazole 20 mg PO DAILY raloxifene (Evista) 60 mg PO DAILY HPI HPI colonoscopy results/ acid reflex: Details: GI clinic visit for this 74 YF for follow up of colon polyps TODAY'S VISIT: Patient was seen by Alexandrea and last office visit was 04/20/2023 for acid reflex. States GERD symptoms are well controlled with Omeprazole (taking since 3-4 years) Patient denies symptoms of heartburn, dysphagia, nausea, vomiting, change in appetite or weight. Takes Citrucil daily for constipation. Denies recent change in bowel habits, constipation, diarrhea, black stools or rectal bleeding. Patient denies major cardiac or pulmonary problems, loud snoring or sleep apnea - being evaluated for palpitations by Cardiology Denies problems with anesthesia in the past. Denies being on chronic anticoagulation. Patient denies known family history of colon polyps, colon cancer or other GI malignancies. LABS IN Adaptive Planning : Reviewed ENDOSCOPIC STUDIES: 09/07/24 COLONOSCOPY SHOWED: Colonoscopy Findings: One small polyp was removed Moderate diverticulosis seen in the entire colon Moderate hemorrhoids on retroflexed exam. Plan: Repeat Colonoscopy in 5 years if polyps are adenomatous and due to a history of adenomatous colon polyps (if pt remaind in stable health) Above findings were reviewed with the patient and relevant handouts were given and the discharge area. BIOPSIES SHOWED: Colon, rectal polyp: Hyperplastic polyp. Letter sent to the patient advising repeat colonoscopy in 5 years. Patient placed on the colonoscopy recall list. [facility] Medical History Intermittent palpitations Breast cancer Diverticulosis GERD (gastroesophageal reflux disease) Hyperlipidemia Hypertension Surgical History History of bilateral cataract extraction History of esophagogastroduodenoscopy (EGD) Hx of colonoscopy History of prolapse of bladder History of mastectomy History of total abdominal hysterectomy and bilateral salpingo-oophorectomy History of D&C Family History Father No problems noted. Mother Uterine cancer CVD (cardiovascular disease) Diabetes Maternal Aunt Ovarian cancer Sister No problems noted. Brother No problems noted. Brother No problems noted. Brother No problems noted. Son No problems noted. Social History Household Members: Spouse Housing: House Are you a primary care team assistant to a significant other at home: No Do you presently have visiting nurse or other home services: No Alcohol intake: current Alcohol intake frequency: a few times a week Patient Tobacco Use Status: Never used Tobacco e-Cigarette/Vaping Use: Never Used Second Hand Smoke Exposure: No service: No Current occupational status: retired Cognitive needs: No Hearing needs: No Vision needs: Yes Review of Systems Const Denies fever(s), Denies headache(s) and Denies weight loss Eyes Denies eye discharge and Denies irritation ENT Reports Normal hearing present, Denies dysphagia, Denies dizziness and Denies headache(s) Card Denies chest pain, Denies leg edema, Denies dyspnea on exertion and Reports other (Palpitations) Resp Denies cough, Denies dyspnea on exertion and Denies wheezing GI Denies abdominal pain, Denies change in bowel habits, Reports constipation, Denies dysphagia and Denies heartburn Denies difficulty voiding and Denies dysuria Musc Denies back pain and Denies arthralgias Skin/Breast Denies pruritus, Denies rash and Denies jaundice Neuro Reports Normal hearing present, Denies Abnormal speech present, Denies dizziness, Denies headache(s) and Denies seizure-like activity Psych Denies anxiety, Denies depression and Denies panic attacks Endo Denies cold intolerance, Denies flushing and Denies heat intolerance Michael/Lymph Denies easy bleeding and Denies easy bruising Aller/Immun Denies wheezing Physical Exam Vital Signs: Last Vital Signs Pulse 85 09/25/24 11:15 BP 132/68 09/25/24 11:15 Pulse Ox 100 09/25/24 11:15 Oxygen Delivery Method Room Air 09/25/24 11:15 BMI result Body Mass Index 24.0 Const General: healthy appearing and no acute distress Nutritional Appearance: average body habitus Orientation/consciousness: patient oriented x3 Limitations: no limitations HEENT Head: Yes normal to inspection Ears: hearing grossly normal bilaterally Eyes Sclerae: sclerae normal Pupils: Equal, round and reactive pupils present Neck Neck: Yes normal visual inspection Chest Chest palpation & inspection: normal inspection of the chest Resp Effort & Inspection: normal respiratory effort Auscultation: clear to auscultation bilaterally Cardio Palpation: normal PMI Rate: regular rate Rhythm: regular rhythm Heart sounds: S1 normal heart sound present, S2 normal heart sound present and no murmurs GI Palpation (GI): Soft to palpation, nontender and No hepatosplenomegaly present Auscultation: normal bowel sounds Rectal Exam - Female: deferred Skin General skin exam: no rashes or lesions noted Neuro General: patient oriented x3, gait normal and moves all extremities Cranial nerves: Yes Equal, round and reactive pupils present and Yes Normal hearing present Speech: No Abnormal speech present Psych Appearance: grossly normal Mental Status: mental status grossly normal Assessment & Plan Assessment & Plan (1) Acid reflux: Code(s): K21.9 - Gastro-esophageal reflux disease without esophagitis Category: Medical (2) Asymptomatic gallstones: Code(s): K80.20 - Calculus of gallbladder without cholecystitis without obstruction Category: Medical Plan 09/07/24 COLONOSCOPY SHOWED: One small polyp was removed Moderate diverticulosis seen in the entire colon Moderate hemorrhoids on retroflexed exam. Plan: Repeat Colonoscopy in 5 years if polyps are adenomatous and due to a history of adenomatous colon polyps (if pt remaind in stable health) BIOPSIES SHOWED: Colon, rectal polyp: Hyperplastic polyp. Letter sent to the patient advising repeat colonoscopy in 5 years. Patient placed on the colonoscopy recall list. 09/25/24 States GERD symptoms are well controlled with Omeprazole (taking since 3- 4 years) Patient denies symptoms of heartburn, dysphagia, nausea, vomiting, change in appetite or weight. Takes Citrucil daily for constipation. Denies recent change in bowel habits, constipation, diarrhea, black stools or rectal bleeding. FU in 6 months Orders: Orders Vitamin B12 and Folate 09/26/24 K21.9 - Gastro-esophageal reflux disease without esophagitis Coding Level of Care Code Est Pt Level 4 (44438) Diagnoses Acid reflux K21.9 Asymptomatic gallstones K80.20 Time Spent (min) 20
[2024-09-25 11:15] VITALS: BP 132/68; PULSE 85; O2SAT 100; BMI 24.0
== END 2024-09-25 12:16 | disposition home or self-care (01) ==
LOC: HO.HGI 11:11
PROVIDERS: PCP Internal Medicine; Visit Provider Internal Medicine Gastroenterology
DX: K21.9 Gastro-esophageal reflux disease without esophagitis (principal); K80.20 Calculus of gallbladder without cholecystitis without obstruction
CPT/HCPCS: 99214

== ENCOUNTER → 2024-09-25 11:11 | Outpatient (BNVA) | payer MEDICARE, SELFPAY | PROVIDERS: PCP Internal Medicine; Visit Provider Internal Medicine Gastroenterology | DX: K21.9 Gastro-esophageal reflux disease without esophagitis (principal); K80.20 Calculus of gallbladder without cholecystitis without obstruction | CPT/HCPCS: 99212 ==

== ENCOUNTER 2024-09-26 11:14 | Outpatient (REF) | payer MEDICARE, SELFPAY ==
[2024-09-26 12:51] LABS: Folate 7.8 ng/mL (> or = 4.0); Vitamin B12 212 pg/mL (200-900)
== END 2024-09-26 11:15 | disposition home or self-care (01) ==
LOC: HO.LAB 11:14
PROVIDERS: PCP Internal Medicine; Visit Provider Internal Medicine Gastroenterology
DX: K21.9 Gastro-esophageal reflux disease without esophagitis (principal)
CPT/HCPCS: 36415; 82607; 82746

== ENCOUNTER → 2024-10-03 10:39 | Outpatient (REF) | payer MEDICARE, SELFPAY ==
--- NOTE | 2024-10-03 10:46 | CA_ITS ---
Transthoracic Echocardiogram Patient (Last, First, Middle): Angie Aguayo, Gender: Female Date of : 1950 Age: 74 Procedure Date: 10/03/2024 Procedure Type: Transthoracic Echocardiogram Location: OP Height: 165.1 cm Weight: 65.32 kg BSA: 1.72 m2 Heart Rate: bpm BP: 160 / 100 mmHg Senior Technical Architect: TO/RC Referring MD: Richi Steele MD Income Tax Return Preparer: Adam Rivero MD Symptoms: I34.0 - Nonrheumatic mitral (valve) insufficiency Study Quality: Adequate ECG Rhythm: Sinus Conclusions: - 1. Normal LV ejection fraction of 60 65% with impaired relaxation filling pattern 2. Mild mitral regurgitation 3. Normal RV systolic pressure 4. No gross pericardial effusion Findings Left Ventricle Normal left ventricular size, thickness, and systolic function. The visually estimated ejection fraction is between 60-65%. Spectral Doppler is indicative of an impaired relaxation filling pattern. Right Ventricle Normal right ventricular cavity size and systolic function. Atria Both atria are normal in size. There is no evidence of interatrial shunt. Aortic Valve Normal aortic valve structure and function. There is no aortic valve stenosis. There is no aortic valve regurgitation. Mitral Valve Normal mitral valve structure and function. There is mild mitral valve regurgitation. There is no mitral valve stenosis. Pulmonic Valve The pulmonic valve is likely normal. There is trace pulmonic valve regurgitation. Tricuspid Valve There is mild tricuspid valve regurgitation. The right ventricular systolic pressure is normal. The right ventricular systolic pressure is 32 mmHg. Normal right atrial pressure. There is no evidence of pulmonary hypertension. Great Vessels All visible segments of the aorta are normal in size. The pulmonary artery was not well visualized. Venous The inferior vena cava is mildly dilated and collapses greater than 50% with inspiration. Pericardium/Pleural There is no evidence of pericardial effusion. Prior Study Comparison No significant change compared to prior study dated: 09/19/2017. Measurements 2D Linear Measurements IVSd: 0.72 0.6-0.9/0.6-1.0 cm LVIDd: 4.93 3.9-5.3/4.2-5.9 cm LVIDd Index: 2.87 2.4-3.2/2.2-3.1 cm/m2 LVIDs: 3.52 2.0-3.6 cm LVPWd: 0.68 0.7-1.1 cm LA Diam: 3.40 2.7-3.8/3.0-4.0 cm LAIDs Index: 1.98 1.5-2.3 cm/m2 LV Mass: 139.04 67-162/88-224 g LV Mass Index: 80.84 43-95/49-115 g/m2 LVOT Diam: 2.10 3.0+(-)1.3 cm 2D Systolic Function EF 4C: 59.60 >55% EF 2C: 60.70 >55% EF BiP: 60.10 >55% Mitral Valve MV Pk E: 0.62 MV PK A: 0.81 MV Decel Time: 175.00 E/A: 0.80 E'Lateral: 7.29 E'Medial: 5.44 E/E' Med: 11.40 E/E' Lat: 8.50 PHT: 51.00 MVA PHT: 4.31 Decel [place]: 3.54 Aortic Valve AoV Pk Bran: 1.23 AoV Mn Bran: 0.85 AoV VTI: 0.27 AoV Pk Grad: 6.00 Aov Mn Grad: 3.00 WILLA Cont.VTI: 2.95 LVOT LVOT Pk Bran: 1.04 LVOT Mn Bran: 0.66 LVOT VTI: 0.23 LVOT Pk Grad: 4.00 LVOT Mn Grad: 2.00 LVOT Diam: 2.10 LVOT Area: 3.46 Diastolic Function MV Pk E: 0.62 MV Pk A: 0.81 E/A: 0.80 E'Medial: 5.44 E/E' Med: 11.40 E' Laterial: 7.29 E/E' Lat: 8.50 Right Ventricle TAPSE (mm): 19.00 TVS' Bran: 10.60 Tricuspid Valve TR Pk Brna: 2.71 TR Pk Grad: 29.00 RA Press: 3.00 RVSP: 32.00 Great Vessels Aorta Sinus of Valsalva: 3.30 2.0-3.5 cm Ao Asc: 3.00 2.1-3.4 cm Pulmonary Valve PV Pk Bran: 0.89 Peak PV Grad: 3.00 Updated in Other Vendor System with Status of Final Adam Rivero MD electronically signed on 10/03/2024 2:23:41 PM with status of Final
== END ==
LOC: HO.CARD 10:39
PROVIDERS: PCP Internal Medicine; Visit Provider Internal Medicine
DX: R00.2 Palpitations (principal); I34.0 Nonrheumatic mitral (valve) insufficiency
CPT/HCPCS: 93246; 93306

== ENCOUNTER → 2024-10-03 10:46 | Outpatient (BNV) | payer MEDICARE, SELFPAY | PROVIDERS: PCP Internal Medicine; Visit Provider Internal Medicine Cardiovascular Disease | DX: I34.0 Nonrheumatic mitral (valve) insufficiency (principal); I36.1 Nonrheumatic tricuspid (valve) insufficiency | CPT/HCPCS: 93306 ==

== ENCOUNTER 2024-10-31 14:00 | Outpatient (AMB) | payer MEDICARE, SELFPAY ==
--- NOTE | 2024-10-31 14:04 | MHC.OFFVIS ---
Vital Signs 10/31/24 14:05 Height 5 ft 5 in Weight 138 lb 14.259 oz BMI 23.1 BP 132/72 Blood Pressure Location Lt brachial Position Sitting Pulse 86 Pulse Source Pulse Oximeter Intake Visit Reasons: 6 wk follow up/holter/echo Allergies cefazolin [From Kefzol] Allergy (Severe, Verified 09/25/24 11:14) Rash clindamycin [CLINDAMYCIN] Allergy (Severe, Verified 09/25/24 11:14) RASH adhesive tape Allergy (Intermediate, Verified 09/25/24 11:14) REDNESS.BLISTERS cephalexin [Keflex] Allergy (Intermediate, Verified 09/25/24 11:14) Rash meperidine [Demerol] Allergy (Intermediate, Verified 09/25/24 11:14) Vomiting nitrofurantoin [Macrobid] Allergy (Intermediate, Verified 09/25/24 11:14) Rash Medication List - Last Reconciled 10/31/24 by Richi Steele MD atorvastatin 40 mg PO DAILY hydrochlorothiazide 25 mg PO DAILY methylcellulose (laxative) (Citrucel) 500 mg PO BID 90 days omeprazole 20 mg PO DAILY raloxifene (Evista) 60 mg PO DAILY HPI Comments Details: Angie returns for follow-up. She was recently seen in consultation regarding palpitations. Few months prior, she had palpitations. She believes she might have had about 2 episodes. Random occurrence. Last for about an hour or so. No recurrence since then. She denies any history of coronary disease or myocardial infarction or cardiomyopathy. Apparently told to have had mitral regurgitation based on a prior echocardiogram. Otherwise, history of breast cancer but stable from that end. On meds for hypertension, dyslipidemia. Since last seen, she has completed an echocardiogram and Holter monitor. [facility] Medical History (Updated 09/25/24 @ 12:12 by Eileen Bowen MD) Intermittent palpitations Breast cancer Diverticulosis GERD (gastroesophageal reflux disease) Hyperlipidemia Hypertension Surgical History (Updated 09/18/24 @ 10:23 by Leda Galvan) History of bilateral cataract extraction History of esophagogastroduodenoscopy (EGD) Hx of colonoscopy History of prolapse of bladder History of mastectomy History of total abdominal hysterectomy and bilateral salpingo-oophorectomy History of D&C Family History Father No problems noted. Mother Uterine cancer CVD (cardiovascular disease) Diabetes Maternal Aunt Ovarian cancer Sister No problems noted. Brother No problems noted. Brother No problems noted. Brother No problems noted. Son No problems noted. Social History Household Members: Spouse Housing: House Are you a primary career placement services counselor to a significant other at home: No Do you presently have visiting nurse or other home services: No Alcohol intake: current Alcohol intake frequency: a few times a week Patient Tobacco Use Status: Never used Tobacco e-Cigarette/Vaping Use: Never Used Second Hand Smoke Exposure: No service: No Current occupational status: retired Cognitive needs: No Hearing needs: No Vision needs: Yes Review of Systems Const Denies weakness ENT Denies dizziness Card Denies chest pain, Denies chest pain with activity, Denies syncope, Denies rapid heart rate, Denies pedal edema, Denies edema, Denies leg edema, Denies lightheadedness, Denies palpitations, Denies dyspnea, Denies dyspnea on exertion and Denies orthopnea Resp Denies cough, Denies dyspnea and Denies dyspnea on exertion GI Denies hematochezia and Denies change in stool character Musc Denies abnormal gait, Denies muscle cramps, Denies muscle weakness, Denies numbness, Denies radiating pain into limb and Denies tingling Neuro Denies abnormal gait, Denies dizziness, Denies syncope, Denies numbness, Denies tingling and Denies weakness Endo Denies palpitations Physical Exam Vital Signs: Last Vital Signs Pulse 86 10/31/24 14:05 BP 132/72 10/31/24 14:05 BMI result Body Mass Index 23.1 Const General: comfortable and no acute distress Orientation/consciousness: patient oriented x3 HEENT Other: Unremarkable Head: Yes normal to inspection Neck Neck: Yes normal visual inspection Chest Chest palpation & inspection: normal inspection of the chest Resp Auscultation: clear to auscultation bilaterally Cardio Palpation: normal PMI Heart sounds: S1 normal heart sound present, S2 normal heart sound present, no gallops, no murmurs and no rubs GI Palpation (GI): Soft to palpation Back/Spine/Pelvis Other: unremarkable Skin General skin exam: no rashes or lesions noted Neuro General: patient oriented x3 Extrem General: Yes normal to inspection Psych Mental Status: mental status grossly normal Assessment & Plan Assessment & Plan (1) Intermittent palpitations: Code(s): R00.2 - Palpitations Category: Medical (2) Non-rheumatic mitral regurgitation: Code(s): I34.0 - Nonrheumatic mitral (valve) insufficiency Category: Medical Plan Cardiac studies reviewed. EKG with underlying sinus rhythm at 89/Min; mild ST depression in the precordial leads. More prominent than the last EKG from 2018 but similar to the one prior to that. Tracing echocardiogram with LVEF of 60-65%. Mild mitral regurgitation but otherwise unremarkable. Holter monitor shows underlying sinus rhythm with an average rate of 71/Min. Rare supraventricular and ventricular ectopy. Exercise stress test from 2018-7 METS exercise capacity. No EKG evidence of ischemia. Normal myocardial perfusion. Overall, based on the above no clear explanation for her palpitations. Could have been some transient supraventricular/ventricular ectopy versus atrial arrhythmias. If any recurrence of the same, she will need further monitoring. We discussed about this today. Otherwise, mainly reassurance. With regard to the mild mitral regurgitation, not of any significance. She will call us with any ongoing concerns. Discussion Notes During our discussion, I reviewed with the patient her episode of palpitations that occurred few months ago and the subsequent cardiac monitoring that showed no arrhythmias, including atrial fibrillation. I informed her that her current cardiac health, including mild mitral regurgitation, does not require intervention at this time, and we will continue to monitor her status. I emphasized that if she experiences any additional episodes or any new symptoms, she should contact me, and we can explore further evaluation if necessary. The patient was amenable to this plan and understood the rationale for monitoring her current condition. Patient was informed and verbally consented to the use of an ambient scribe for clinic note documentation during this visit. Patient Instructions: - Monitor for any new episodes of palpitations. - Notify me if you experience any chest pain, pressure, or new palpitations. - Understand that your mitral regurgitation is mild and not currently a concern. - Call my office should you notice any new or worsening symptoms. - Continue with regular activities unless advised otherwise. Coding Level of Care Code Est Pt Level 3 (07940) Diagnoses Intermittent palpitations R00.2 Non-rheumatic mitral regurgitation I34.0
[2024-10-31 14:05] VITALS: BP 132/72; PULSE 86; BMI 23.1
== END 2024-10-31 14:22 | disposition home or self-care (01) ==
LOC: HO.HCS 14:01
PROVIDERS: PCP Internal Medicine; Visit Provider Internal Medicine
DX: R00.2 Palpitations (principal); I34.0 Nonrheumatic mitral (valve) insufficiency
CPT/HCPCS: 99213

== ENCOUNTER → 2024-10-31 14:00 | Outpatient (BNVA) | payer MEDICARE, SELFPAY | PROVIDERS: PCP Internal Medicine; Visit Provider Internal Medicine | DX: R00.2 Palpitations (principal); I34.0 Nonrheumatic mitral (valve) insufficiency | CPT/HCPCS: 99212 ==

== ENCOUNTER 2025-01-18 07:16 | Outpatient (AMB) | payer MEDICARE, SELFPAY ==
--- OUTSIDE RECORDS SUMMARY | 2025-01-18 07:18 | XMS_ITS | Patient Health Record ---
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
--- NOTE | 2025-01-18 07:26 | MHC.OFFVIS ---
Vital Signs 01/18/25 07:34 Height 5 ft 5 in Weight 136 lb BMI 22.6 BP 139/67 Blood Pressure Location Lt brachial Position Sitting Pulse 76 Intake Visit Reasons: concerned return gastritis, abd pain gas Allergies cefazolin (From Kefzol) Allergy (Severe, Verified 01/18/25 07:26) Rash clindamycin (CLINDAMYCIN) Allergy (Severe, Verified 01/18/25 07:26) RASH adhesive tape Allergy (Intermediate, Verified 01/18/25 07:26) REDNESS.BLISTERS cephalexin (Keflex) Allergy (Intermediate, Verified 01/18/25 07:26) Rash meperidine (Demerol) Allergy (Intermediate, Verified 01/18/25 07:26) Vomiting nitrofurantoin (Macrobid) Allergy (Intermediate, Verified 01/18/25 07:26) Rash Medication List - Last Reconciled 01/18/25 by Eileen Bowen MD atorvastatin 40 mg PO DAILY hydrochlorothiazide 25 mg PO DAILY methylcellulose (laxative) (Citrucel) 500 mg PO BID 90 days omeprazole 20 mg PO DAILY raloxifene (Evista) 60 mg PO DAILY HPI HPI concerned return gastritis, abd pain gas: Details: GI clinic visit for this 74 YF for follow up of colon polyps TODAY'S VISIT: Patient was seen by Alexandrea and leisa was 04/20/2023 for acid reflex. 74-year-old female presenting with concerns about abdominal pain, constipation, and possible diverticulitis re-exacerbation. About a month ago, she experienced abdominal spasms and left-sided pain, which she equated to labor pain, along with a fever of 99.9?F, bloating, and gas. She had difficulty passing gas, and the discomfort increased until relieved by bowel movements. The episode lasted approximately two days, during which she consumed competitive intelligence manager foods, leading to symptom relief. She has a history of similar symptoms approximately a year ago, though without fever. She navigates these episodes by modifying her diet, avoiding trigger foods. While she generally experiences daily bowel movements, her stool consistency varies between loose and hard. She reports sporadic back pain correlated with her abdominal symptoms. She desires evaluation to determine if her symptoms are related to a possible diverticulitis flare-up. The patient has actively modified her diet to manage her symptoms of diverticulitis and constipation, by consuming competitive intelligence manager meals and avoiding specific foods that might exacerbate her condition. She has not mentioned specific allergies or current use of supplements. Her dietary changes have focused on reducing potential triggers of diverticulitis, based on her research. States GERD symptoms are well controlled with Omeprazole (taking since 3-4 years) Patient denies symptoms of heartburn, dysphagia, nausea, vomiting, change in appetite or weight. Takes Citrucil daily for constipation. Denies recent change in bowel habits, constipation, diarrhea, black stools or rectal bleeding. Patient denies major cardiac or pulmonary problems, loud snoring or sleep apnea - being evaluated for palpitations by Cardiology Denies problems with anesthesia in the past. Denies being on chronic anticoagulation. Patient denies known family history of colon polyps, colon cancer or other GI malignancies. LABS IN [facility] : Reviewed IMAGING STUDIES: 11/2020 ABD US SHOWED: GALLBLADDER: There is a small gallstone in the gallbladder. The gallbladder is normal in size. Gallbladder wall is normal. ENDOSCOPIC STUDIES: 09/07/24 COLONOSCOPY SHOWED: Colonoscopy Findings: One small polyp was removed Moderate diverticulosis seen in the entire colon Moderate hemorrhoids on retroflexed exam. Plan: Repeat Colonoscopy in 5 years if polyps are adenomatous and due to a history of adenomatous colon polyps (if pt remaind in stable health) Above findings were reviewed with the patient and relevant handouts were given and the discharge area. BIOPSIES SHOWED: Colon, rectal polyp: Hyperplastic polyp. Letter sent to the patient advising repeat colonoscopy in 5 year [facility] Medical History Intermittent palpitations Breast cancer Diverticulosis GERD (gastroesophageal reflux disease) Hyperlipidemia Hypertension Surgical History History of bilateral cataract extraction History of esophagogastroduodenoscopy (EGD) Hx of colonoscopy History of prolapse of bladder History of mastectomy History of total abdominal hysterectomy and bilateral salpingo-oophorectomy History of D&C Family History Father No problems noted. Mother Uterine cancer CVD (cardiovascular disease) Diabetes Maternal Aunt Ovarian cancer Sister No problems noted. Brother No problems noted. Brother No problems noted. Brother No problems noted. Son No problems noted. Social History Household Members: Spouse Housing: House Are you a primary dog day care attendant to a significant other at home: No Do you presently have visiting nurse or other home services: No Alcohol intake: current Alcohol intake frequency: a few times a week Patient Tobacco Use Status: Never used Tobacco e-Cigarette/Vaping Use: Never Used Second Hand Smoke Exposure: No service: No Current occupational status: retired Cognitive needs: No Hearing needs: No Vision needs: Yes Review of Systems Const All systems reviewed & are unremarkable except as noted in HPI and below Physical Exam Vital Signs: Last Vital Signs Pulse 76 01/18/25 07:34 BP 139/67 01/18/25 07:34 BMI result Body Mass Index 22.6 Const General: healthy appearing and no acute distress Nutritional Appearance: average body habitus Orientation/consciousness: patient oriented x3 Limitations: no limitations HEENT Head: Yes normal to inspection Ears: hearing grossly normal bilaterally Eyes Sclerae: sclerae normal Pupils: Equal, round and reactive pupils present Neck Neck: Yes normal visual inspection Chest Chest palpation & inspection: normal inspection of the chest Resp Effort & Inspection: normal respiratory effort Auscultation: clear to auscultation bilaterally Cardio Palpation: normal PMI Rate: regular rate Rhythm: regular rhythm Heart sounds: S1 normal heart sound present, S2 normal heart sound present and no murmurs GI Palpation (GI): Soft to palpation, nontender and No hepatosplenomegaly present Auscultation: normal bowel sounds Rectal Exam - Female: deferred Skin General skin exam: no rashes or lesions noted Neuro General: patient oriented x3, gait normal and moves all extremities Cranial nerves: Yes Equal, round and reactive pupils present Psych Appearance: grossly normal Mental Status: mental status grossly normal Assessment & Plan Assessment & Plan (1) Diverticulosis large intestine w/o perforation or abscess w/o bleeding: Code(s): K57.30 - Diverticulosis of large intestine without perforation or abscess without bleeding Category: Medical (2) Acid reflux: Code(s): K21.9 - Gastro-esophageal reflux disease without esophagitis Category: Medical (3) Abdominal pain: Comment: Intermittent left lower quadrant pain, recent treatment with antibiotics for question diverticulitis, no CT documentation. Symptoms resolved. Intermittent constipation Colonoscopy Code(s): R10.9 - Unspecified abdominal pain Category: Medical (4) Chronic constipation: Code(s): K59.09 - Other constipation Category: Medical (5) Asymptomatic gallstones: Code(s): K80.20 - Calculus of gallbladder without cholecystitis without obstruction Category: Medical Plan 09/25/24 States GERD symptoms are well controlled with Omeprazole (taking since 3-4 years) Patient denies symptoms of heartburn, dysphagia, nausea, vomiting, change in appetite or weight. Takes Citrucil daily for constipation. Denies recent change in bowel habits, constipation, diarrhea, black stools or rectal bleeding. 01/18/25 Episode of lower abdominal pain associated with gas and bloating 2 months ago likely due to acute gastroenteritis. Continuing symptoms probably related to resolving gastroenteritis versus post-infectious IBS.. Patient advised to take MiraLax 2-3 times daily for constipation Probiotics for the next 3 months. Evaluation in the ED if she has recurrent episode of abdominal pain - will need CT scan to rule out diverticulitis Monitoring symptoms closely and returning for evaluation should symptoms worsen is advised. Routine follow-ups will aid in managing and adjusting the treatment strategy as needed. FU in 3 months - has appt 03/28/25 Coding Level of Care Code Est Pt Level 4 (44977) Diagnoses Diverticulosis large intestine w/o perforation or abscess w/o bleeding K57.30 Acid reflux K21.9 Abdominal pain R10.9 Chronic constipation K59.09 Asymptomatic gallstones K80.20 Time Spent (min) 20
--- NOTE | 2025-01-18 07:30 | A.OFFVIS_ITS ---
Vital Signs 01/18/25 07:34 Height 5 ft 5 in Weight 136 lb BMI 22.6 BP 139/67 Blood Pressure Location Lt brachial Position Sitting Pulse 76 Intake Visit Reasons: concerned return gastritis, abd pain gas Intake Note: Patient follow up for Gastritis, abdominal pain with gas. Patient cc: abdominal pain and bloating come and go, LBP and BM combination more Constipation than diarrhea. 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 Accompanied by: Self / Same As Patient Allergies cefazolin (From Kefzol) Allergy (Severe, Verified 01/18/25 07:26) Rash clindamycin (CLINDAMYCIN) Allergy (Severe, Verified 01/18/25 07:26) RASH adhesive tape Allergy (Intermediate, Verified 01/18/25 07:26) REDNESS.BLISTERS cephalexin (Keflex) Allergy (Intermediate, Verified 01/18/25 07:26) Rash meperidine (Demerol) Allergy (Intermediate, Verified 01/18/25 07:26) Vomiting nitrofurantoin (Macrobid) Allergy (Intermediate, Verified 01/18/25 07:26) Rash Medication List - Last Reconciled 01/18/25 by Eileen Bowen MD atorvastatin 40 mg PO DAILY hydrochlorothiazide 25 mg PO DAILY methylcellulose (laxative) (Citrucel) 500 mg PO BID 90 days omeprazole 20 mg PO DAILY raloxifene (Evista) 60 mg PO DAILY [facility] Medical History Intermittent palpitations Breast cancer Diverticulosis GERD (gastroesophageal reflux disease) Hyperlipidemia Hypertension Surgical History History of bilateral cataract extraction History of esophagogastroduodenoscopy (EGD) Hx of colonoscopy History of prolapse of bladder History of mastectomy History of total abdominal hysterectomy and bilateral salpingo-oophorectomy History of D&C Family History Father No problems noted. Mother Uterine cancer CVD (cardiovascular disease) Diabetes Maternal Aunt Ovarian cancer Sister No problems noted. Brother No problems noted. Brother No problems noted. Brother No problems noted. Son No problems noted. Social History Household Members: Spouse Housing: House Are you a primary child care specialist to a significant other at home: No Do you presently have visiting nurse or other home services: No Alcohol intake: current Alcohol intake frequency: a few times a week Patient Tobacco Use Status: Never used Tobacco e-Cigarette/Vaping Use: Never Used Second Hand Smoke Exposure: No service: No Current occupational status: retired Cognitive needs: No Hearing needs: No Vision needs: Yes Physical Exam Vital Signs: Last Vital Signs Pulse 76 01/18/25 07:34 BP 139/67 01/18/25 07:34 BMI result Body Mass Index 22.6 Assessment & Plan Assessment & Plan (1) Diverticulosis large intestine w/o perforation or abscess w/o bleeding: Code(s): K57.30 - Diverticulosis of large intestine without perforation or abscess without bleeding Category: Medical (2) Acid reflux: Code(s): K21.9 - Gastro-esophageal reflux disease without esophagitis Category: Medical (3) Abdominal pain: Comment: Intermittent left lower quadrant pain, recent treatment with antibiotics for question diverticulitis, no CT documentation. Symptoms resolved. Intermittent constipation Colonoscopy Code(s): R10.9 - Unspecified abdominal pain Category: Medical (4) Chronic constipation: Code(s): K59.09 - Other constipation Category: Medical (5) Asymptomatic gallstones: Code(s): K80.20 - Calculus of gallbladder without cholecystitis without obstruction Category: Medical Coding Diagnoses Diverticulosis large intestine w/o perforation or abscess w/o bleeding K57.30 Acid reflux K21.9 Abdominal pain R10.9 Chronic constipation K59.09 Asymptomatic gallstones K80.20
[2025-01-18 07:34] VITALS: BP 139/67; PULSE 76; BMI 22.6
== END 2025-01-18 07:58 | disposition home or self-care (01) ==
LOC: HO.HGI 07:16
PROVIDERS: PCP Internal Medicine; Visit Provider Internal Medicine Gastroenterology
DX: K57.30 Diverticulosis of large intestine without perforation or abscess without bleeding (principal); K21.9 Gastro-esophageal reflux disease without esophagitis; R10.9 Unspecified abdominal pain; K59.09 Other constipation; K80.20 Calculus of gallbladder without cholecystitis without obstruction
CPT/HCPCS: 99214

== ENCOUNTER → 2025-01-18 07:16 | Outpatient (BNVA) | payer MEDICARE, SELFPAY | PROVIDERS: PCP Internal Medicine; Visit Provider Internal Medicine Gastroenterology | DX: K57.30 Diverticulosis of large intestine without perforation or abscess without bleeding (principal); R10.9 Unspecified abdominal pain; K21.9 Gastro-esophageal reflux disease without esophagitis; K59.09 Other constipation; K80.20 Calculus of gallbladder without cholecystitis without obstruction | CPT/HCPCS: 99212 ==

== ENCOUNTER 2025-02-21 10:10 | Outpatient (REF) | payer MEDICARE, SELFPAY ==
--- NOTE | ~2025-02-21 | MM_ITS ---
EXAMINATION: MM SCREENING DIGITAL BREAST TOMOSYNTHESIS, LEFT CLINICAL INFORMATION: Screening. Asymptomatic. Personal history of right mastectomy for breast cancer in 2004. COMPARISON: Comparison made to multiple prior, most recent February 16, 2024, and most remote January 30, 2020. TECHNIQUE: Digital breast tomosynthesis is performed in mediolateral oblique and craniocaudal views along with computer-aided detection (CAD). Additional views were taken if needed. Dilated at FINDINGS: BREAST COMPOSITION: The breasts are heterogeneously dense, which may obscure small masses (ACR BI-RADS breast composition Category c). LEFT BREAST: No significant masses, suspicious calcifications or other abnormalities are seen. MM/MM tomosynthesis screening LT IMPRESSION: LEFT BREAST: Negative, no mammographic evidence of malignancy. Normal interval follow-up is recommended in 12 months. ASSESSMENT: BI-RADS 1 - Negative RECOMMENDATION: Routine annual mammography screening. FOLLOW-UP: 1 year F/U This examination should not preclude the clinical evaluation of a suspicious palpable abnormality. This patient's information was entered into a reminder system with a target due date for their next mammogram. Electronically signed by: Alaina Arriaza MD 02/23/2025 04:51 PM EDT
--- OUTSIDE RECORDS SUMMARY | 2025-02-21 11:28 | XMS_ITS | Patient Health Record ---
Author Organization [facility] Address 10 [facility] [address] [place] [id number] Care Team Providers Care Social Insurance Administrator Name Role Phone Chambers Mynor Charles [phone] Reason For Referral No Information Plan Of Treatment No Information
== END 2025-02-21 10:11 | disposition home or self-care (01) ==
LOC: HO.MAMMO 10:10
PROVIDERS: PCP Internal Medicine; Visit Provider Internal Medicine
DX: Z12.31 Encounter for screening mammogram for malignant neoplasm of breast (principal)
CPT/HCPCS: 77063; 77067

== ENCOUNTER → 2025-02-21 10:30 | Outpatient (BNV) | payer MEDICARE, SELFPAY | PROVIDERS: PCP Internal Medicine; Visit Provider Radiology Body Imaging | DX: Z12.31 Encounter for screening mammogram for malignant neoplasm of breast (principal) | CPT/HCPCS: 77063; 77067 ==

== ENCOUNTER 2025-03-25 07:26 | Outpatient (REF) | payer MEDICARE, SELFPAY ==
--- OUTSIDE RECORDS SUMMARY | 2025-03-25 07:28 | XMS_ITS | Patient Health Record ---
Author Organization [facility] Address 10 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
[2025-03-25 08:43] LABS: Alanine Aminotransferase 15 U/L (0-31); Albumin Level 4.6 g/dL (3.5-5.0); Alkaline Phosphatase 52 U/L (39-117); Anion Gap 13 (12-20); Aspartate Amino Transferase 22 U/L (5-31); Blood Urea Nitrogen 18 mg/dL (9-16); Calcium 9.5 mg/dL (8.4-10.2); Carbon Dioxide 26 mmol/L (22-29); Chloride 108 mmol/L (96-108); Cholesterol 190 mg/dL (<200); Estimated Glomerular Filt Rate > 60; HDL Cholesterol 75 mg/dL (>40); Potassium 3.2 mmol/L (3.3-5.1); Sodium 144 mmol/L (135-145); Total Protein 7.2 g/dL (6.5-8.0); Triglycerides 56 mg/dL (<150)
== END 2025-03-25 07:27 | disposition home or self-care (01) ==
LOC: HO.LAB 07:26
PROVIDERS: PCP Internal Medicine; Visit Provider Internal Medicine
DX: K21.9 Gastro-esophageal reflux disease without esophagitis (principal); E78.5 Hyperlipidemia, unspecified
CPT/HCPCS: 36415; 80053; 80061

== ENCOUNTER 2025-03-28 09:40 | Outpatient (AMB) | payer MEDICARE, SELFPAY ==
--- NOTE | 2025-03-28 09:42 | MHC.OFFVIS ---
Vital Signs 03/28/25 09:44 Height 5 ft 5 in Weight 137 lb BMI 22.8 BP 119/68 Blood Pressure Location Lt brachial Position Sitting Pulse 79 Pulse Oximetry (%) 98 Oxygen Delivery Method Room Air Intake Visit Reasons: 6 mos FUV. Intake Note: Patient 3 month follow up for abdominal pain and acid reflux. Patient cc: denies any GI issues , the probiotics are helping her a lot, she can see the difference. 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 Accompanied by: Self / Same As Patient Allergies cefazolin (From Kefzol) Allergy (Severe, Verified 03/28/25 09:42) Rash clindamycin (CLINDAMYCIN) Allergy (Severe, Verified 03/28/25 09:42) RASH adhesive tape Allergy (Intermediate, Verified 03/28/25 09:42) REDNESS.BLISTERS cephalexin (Keflex) Allergy (Intermediate, Verified 03/28/25 09:42) Rash meperidine (Demerol) Allergy (Intermediate, Verified 03/28/25 09:42) Vomiting nitrofurantoin (Macrobid) Allergy (Intermediate, Verified 03/28/25 09:42) Rash Medication List - Last Reconciled 03/28/25 by Eileen Bowen MD atorvastatin 40 mg PO DAILY hydrochlorothiazide 25 mg PO DAILY methylcellulose (laxative) (Citrucel) 500 mg PO BID 90 days omeprazole 20 mg PO DAILY raloxifene (Evista) 60 mg PO DAILY HPI HPI 6 mos FUV.: Details: GI clinic visit for this 74 YF for follow up of colon polyps TODAY'S VISIT: Patient 3 month follow up for abdominal pain and acid reflux. Patient denies any GI issues , the probiotics are helping her a lot, she can see the difference. Probiotics have helped a lot Took Miralax once while she was travelling. Has a BM every morning - taking apples and yogurt Happy that she has not had abd pain again. Able to release the gas better 74-year-old female presenting with concerns about abdominal pain, constipation, and possible diverticulitis re-exacerbation. About a month ago, she experienced abdominal spasms and left-sided pain, which she equated to labor pain, along with a fever of 99.9?F, bloating, and gas. She had difficulty passing gas, and the discomfort increased until relieved by bowel movements. 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 She has a history of similar symptoms approximately a year ago, though without fever. She navigates these episodes by modifying her diet, avoiding trigger foods. While she generally experiences daily bowel movements, her stool consistency varies between loose and hard. She reports sporadic back pain correlated with her abdominal symptoms. She desires evaluation to determine if her symptoms are related to a possible diverticulitis flare-up. The patient has actively modified her diet to manage her symptoms of diverticulitis and constipation, by consuming back roll lathe operator meals and avoiding specific foods that might exacerbate her condition. She has not mentioned specific allergies or current use of supplements. Her dietary changes have focused on reducing potential triggers of diverticulitis, based on her research. States GERD symptoms are well controlled with Omeprazole (taking since 3-4 years) Patient denies symptoms of heartburn, dysphagia, nausea, vomiting, change in appetite or weight. Takes Citrucil daily for constipation. Denies recent change in bowel habits, constipation, diarrhea, black stools or rectal bleeding. Patient denies major cardiac or pulmonary problems, loud snoring or sleep apnea - being evaluated for palpitations by Cardiology Denies problems with anesthesia in the past. Denies being on chronic anticoagulation. Patient denies known family history of colon polyps, colon cancer or other GI malignancies. LABS IN [facility] : Reviewed IMAGING STUDIES: 11/2020 [facility] US SHOWED: GALLBLADDER: There is a small gallstone in the gallbladder. The gallbladder is normal in size. Gallbladder wall is normal. ENDOSCOPIC STUDIES: 09/07/24 COLONOSCOPY SHOWED: Colonoscopy Findings: One small polyp was removed Moderate diverticulosis seen in the entire colon Moderate hemorrhoids on retroflexed exam. Plan: Repeat Colonoscopy in 5 years if polyps are adenomatous and due to a history of adenomatous colon polyps (if pt remaind in stable health) Above findings were reviewed with the patient and relevant handouts were given and the discharge area. BIOPSIES SHOWED: Colon, rectal polyp: Hyperplastic polyp. Letter sent to the patient advising repeat colonoscopy in 5 years [facility] Medical History Intermittent palpitations Breast cancer Diverticulosis GERD (gastroesophageal reflux disease) Hyperlipidemia Hypertension Surgical History History of bilateral cataract extraction History of esophagogastroduodenoscopy (EGD) Hx of colonoscopy History of prolapse of bladder History of mastectomy History of total abdominal hysterectomy and bilateral salpingo-oophorectomy History of D&C Family History Father No problems noted. Mother Uterine cancer CVD (cardiovascular disease) Diabetes Maternal Aunt Ovarian cancer Sister No problems noted. Brother No problems noted. Brother No problems noted. Brother No problems noted. Son No problems noted. Social History Household Members: Spouse Housing: House Are you a primary child care provider to a significant other at home: No Do you presently have visiting nurse or other home services: No Alcohol intake: current Alcohol intake frequency: a few times a week Patient Tobacco Use Status: Never used Tobacco e-Cigarette/Vaping Use: Never Used Second Hand Smoke Exposure: No service: No Current occupational status: retired Cognitive needs: No Hearing needs: No Vision needs: Yes Review of Systems Const All systems reviewed & are unremarkable except as noted in HPI and below Physical Exam Vital Signs: Oxygen Delivery Method Room Air 03/28/25 09:44 Const General: healthy appearing and no acute distress Nutritional Appearance: average body habitus Orientation/consciousness: patient oriented x3 Limitations: no limitations HEENT Head: Yes normal to inspection Ears: hearing grossly normal bilaterally Eyes Sclerae: sclerae normal Pupils: Equal, round and reactive pupils present Neck Neck: Yes normal visual inspection Chest Chest palpation & inspection: normal inspection of the chest Resp Effort & Inspection: normal respiratory effort Auscultation: clear to auscultation bilaterally Cardio Palpation: normal PMI Rate: regular rate Rhythm: regular rhythm Heart sounds: S1 normal heart sound present, S2 normal heart sound present and no murmurs GI Palpation (GI): Soft to palpation, nontender and No hepatosplenomegaly present Auscultation: normal bowel sounds Rectal Exam - Female: deferred Skin General skin exam: no rashes or lesions noted Neuro General: patient oriented x3, gait normal and moves all extremities Cranial nerves: Yes Equal, round and reactive pupils present Psych Appearance: grossly normal Mental Status: mental status grossly normal Assessment & Plan Assessment & Plan (1) Diverticulosis large intestine w/o perforation or abscess w/o bleeding: Code(s): K57.30 - Diverticulosis of large intestine without perforation or abscess without bleeding Category: Medical (2) Acid reflux: Code(s): K21.9 - Gastro-esophageal reflux disease without esophagitis Category: Medical (3) Abdominal pain: Comment: Intermittent left lower quadrant pain, recent treatment with antibiotics for question diverticulitis, no CT documentation. Symptoms resolved. Intermittent constipation Colonoscopy Code(s): R10.9 - Unspecified abdominal pain Category: Medical (4) Chronic constipation: Code(s): K59.09 - Other constipation Category: Medical (5) Asymptomatic gallstones: Code(s): K80.20 - Calculus of gallbladder without cholecystitis without obstruction Category: Medical Plan 09/25/24 States GERD symptoms are well controlled with Omeprazole (taking since 3-4 years) Patient denies symptoms of heartburn, dysphagia, nausea, vomiting, change in appetite or weight. Takes Citrucil daily for constipation. Denies recent change in bowel habits, constipation, diarrhea, black stools or rectal bleeding. 01/18/25 Episode of lower abdominal pain associated with gas and bloating 2 months ago likely due to acute gastroenteritis. Continuing symptoms probably related to resolving gastroenteritis versus post-infectious IBS.. Patient advised to take MiraLax 2-3 times daily for constipation Probiotics for the next 3 months. Evaluation in the ED if she has recurrent episode of abdominal pain - will need CT scan to rule out diverticulitis Monitoring symptoms closely and returning for evaluation should symptoms worsen is advised. Routine follow-ups will aid in managing and adjusting the treatment strategy as needed. 03/28/25 Probiotics have helped a lot Took Miralax once while she was travelling. Has a BM every morning - taking apples and yogurt Patient advised to continue with same treatment. FU in 8 months Coding Level of Care Code Est Pt Level 3 (51351) Diagnoses Diverticulosis large intestine w/o perforation or abscess w/o bleeding K57.30 Acid reflux K21.9 Abdominal pain R10.9 Chronic constipation K59.09 Asymptomatic gallstones K80.20 Time Spent (min) 15
[2025-03-28 09:44] VITALS: BP 119/68; PULSE 79; O2SAT 98; BMI 22.8
--- OUTSIDE RECORDS SUMMARY | 2025-03-28 10:45 | XMS_ITS | Patient Health Record ---
Author Organization [facility] Address [address] [place] [id number] Care Team Providers Care Bulwark Carpenter Name Role Phone Chambers Mynor Charles [phone] Reason For Referral No Information Plan Of Treatment No Information
== END 2025-03-28 10:06 | disposition home or self-care (01) ==
PROVIDERS: PCP Internal Medicine; Visit Provider Internal Medicine Gastroenterology
DX: K57.30 Diverticulosis of large intestine without perforation or abscess without bleeding (principal); K21.9 Gastro-esophageal reflux disease without esophagitis; R10.9 Unspecified abdominal pain; K59.09 Other constipation; K80.20 Calculus of gallbladder without cholecystitis without obstruction
CPT/HCPCS: 99213

== ENCOUNTER → 2025-03-28 09:40 | Outpatient (BNVA) | payer MEDICARE, SELFPAY | PROVIDERS: PCP Internal Medicine; Visit Provider Internal Medicine Gastroenterology | DX: K21.9 Gastro-esophageal reflux disease without esophagitis (principal); K57.30 Diverticulosis of large intestine without perforation or abscess without bleeding; K59.09 Other constipation; R10.9 Unspecified abdominal pain; K80.20 Calculus of gallbladder without cholecystitis without obstruction | CPT/HCPCS: 99212 ==

== ENCOUNTER 2025-04-04 14:11 | Outpatient (AMB) | payer MEDICARE, SELFPAY ==
[2025-04-04 14:20] VITALS: BP 148/76; PULSE 82; RESP 18; TEMP 36.2; O2SAT 94; BMI 23.3
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
== END 2025-04-04 15:14 | disposition home or self-care (01) ==
LOC: HO.HMCH 14:12
PROVIDERS: PCP Internal Medicine; Visit Provider Internal Medicine
DX: I10 Essential (primary) hypertension (principal); E78.5 Hyperlipidemia, unspecified; K21.9 Gastro-esophageal reflux disease without esophagitis; C50.919 Malignant neoplasm of unspecified site of unspecified female breast; Z23 Encounter for immunization

== ENCOUNTER → 2025-04-04 14:11 | Outpatient (BNVA) | payer MEDICARE, SELFPAY | PROVIDERS: PCP Internal Medicine; Visit Provider Internal Medicine | DX: I10 Essential (primary) hypertension (principal); E78.5 Hyperlipidemia, unspecified; K21.9 Gastro-esophageal reflux disease without esophagitis; K57.90 Diverticulosis of intestine, part unspecified, without perforation or abscess without bleeding; R03.0 Elevated blood-pressure reading, without diagnosis of hypertension; M19.042 Primary osteoarthritis, left hand; M19.041 Primary osteoarthritis, right hand; M81.0 Age-related osteoporosis without current pathological fracture; E55.9 Vitamin D deficiency, unspecified; Z23 Encounter for immunization; Z85.3 Personal history of malignant neoplasm of breast | CPT/HCPCS: 90471; 90656; 96127; 99212 ==